=== PATIENT | female | born 1945 | race Caucasian/White ===

== ENCOUNTER 2016-08-13 14:46 | Inpatient (IN) | payer MEDICARE, OTHER ==
--- NOTE | ~2016-08-13 | DS ---
Unit #: [id number] #: [id number] Patient: JORDI LÓPEZ [id number] [address] [address] [id number] I MR#: [id number] NAME: JORDI LÓPEZ. ROOM: 330 Age: 71 Sex: F Admission Date: 08/13/2016 : 1945 Discharge Date: 08/24/2016 Attending Physician: Jose Roberto Marrufo M.D. Primary Care Physician: No Primary Care Physician DISCHARGE SUMMARY PRINCIPAL DISCHARGE DIAGNOSES 1. Iron deficiency anemia. 2. Duodenitis. 3. Diverticulosis. 4. Acute systolic congestive heart failure. 5. 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 6. Type 2 diabetes mellitus. 7. Anemia. 8. Left hip dysplasia. 9. GE reflux disease. 10. Obstructive sleep apnea syndrome. 11. Peripheral arterial disease status post right carotid endarterectomy. 12. Elevated liver functions on admission of unclear etiology. 13. Hyperlipidemia. 14. Hypertension. 15. Status post cholecystectomy. 16. Status post hysterectomy. 17. Status post appendectomy. 18. Paroxysmal atrial fibrillation. 19. Thrombocytopenia. PROCEDURES 1. Transfusion three units packed RBCs, 08/13/16. 2. Transfusion two units of FFP on 08/13/16. 3. Transfusion two units packed RBCs, 08/14/16. 4. EGD with biopsy on 08/17/16. 5. Colonoscopy to the ascending colon on 08/17/16. CONSULTANTS 1. Dr. Nieves from [facility]. 2. Dr. Mendoza from [facility]. REASON FOR HOSPITALIZATION The patient is a 71-year-old white female with a history of multiple CVAs, right hemiparesis, type 2 diabetes mellitus, hypertension, anemia, left hip dysplasia, migraine headaches, GE reflux disease, hyperlipidemia, obstructive sleep apnea syndrome, presented to the emergency room with cough, shortness of air, chest pain. Patient found to be severely anemic with an elevated BNP, atypical bilateral pulmonary infiltrates, EKG changes suggestive of ischemia, elevated liver functions and admitted for same. Rectal exam was heme positive in the emergency room but the patient denied any obvious melena, hematochezia or otherwise. She was on aspirin and warfarin at home. Her protime was therapeutic at 2.1. Hemoglobin on Unit #: [id number] #: [id number] Patient: JORDI LÓPEZ admission was 3.6. BNP 606. Troponin elevated but nondiagnostic. LFTs were markedly elevated with an AST of 685 and an ALT of 857. Chest x-ray showed, again, atypical pulmonary infiltrates and the patient was admitted. HOSPITAL COURSE The patient was typed, crossed matched and transfused to keep her hemoglobin above 8. She received FFP. She received Lasix between the transfusions. CT scan of the abdomen and pelvis was ordered because of the iron deficiency anemia and elevated LFTs. She was placed on IV proton pump inhibitors, low dose sliding scale insulin, Accu-Cheks, SCDs. Cardiology and Surgery were consulted. The patient rapidly improved. Her troponins remained elevated but nondiagnostic. She eventually had a her protime reversed and stabilized and underwent EGD on the showing mild duodenitis. Biopsy for Helicobacter pylori. Colonoscopy to the ascending colon with rare diverticula. The patient had no further evidence of bleeding. Eventually, she was started back on her warfarin, covered with Lovenox because of some paroxysmal atrial fibrillation. A 2D echo was performed, a technically difficult study. Mild global hypokinesis. Ejection fraction of 45 to 50% with mild mitral regurgitation. There was some thought by Cardiology about having a cath but they decided against this, which delayed her discharge. She then was started back on Coumadin overlapped with Lovenox. She could not afford the Lovenox so she had to stay until her protime reached therapeutic levels. In any case, this morning her INR is 2.3. Her BMP is normal except for random blood sugar of 138 and a BUN of 28. She appears to be stable for discharge. Her room air O2 sats are 98%. She is on a Healthy Heart constant carb diet, 1800 mL fluid restriction. She is to have her protime with Dr. Shah on 08/27/16, and an office visit in one week. She is to see Dr. Mendoza, 10/04/16 at 2:45 p.m. CURRENT MEDICATIONS 1. Amiodarone 200 mg b.i.d. until 08/27/16 and then one daily thereafter. 2. Warfarin 2.5 mg p.o. daily. 3. Her Lipitor is on hold because of the elevated liver functions. 4. Norvasc 5 mg p.o. daily. 5. Lopressor 25 mg p.o. b.i.d. 6. Furosemide 40 mg p.o. daily. 7. Zestril 10 mg p.o. daily. 8. Carafate one gram p.o. a.c. and h.s. 9. Aspirin 81 mg daily. 10. Protonix 40 mg daily. 11. Baclofen 10 mg t.i.d. p.r.n. for muscle spasm. 12. Glucotrol 2.5 mg p.o. b.i.d. before meals. Her last CBC shows her hemoglobin at 10.7 and her platelets were slightly low at 122. Biopsy for H. pylori was negative. Thyroid functions checked while the patient was here were within normal limits. Dictated by... Jesse Williamson/cristobal TD: 08/24/2016 08:36 JOB #: [id number] Unit #: [id number] #: [id number] Patient: JORDI LÓPEZ DISCHARGE SUMMARY Page 1 of 1 X Jose Roberto Marrufo MD X DISCHARGE SUMMARY
--- NOTE | ~2016-08-13 | CO ---
Unit #: [id number] #: [id number] Patient: JORDI ALVARADO [id number] [address] [address] [id number] I MR#: [id number] NAME: JORDI ALVARADO ROOM: 330 Age: 71 Sex: F Admission Date: 08/13/2016 : 1945 Attending Physician: Jose Roberto Marrufo M.D. Consultation Date: 08/14/2016 CONSULTATION REPORT HISTORY OF PRESENT ILLNESS Ms. Alvarado is a 71-year-old female, who has a history of diabetes, stroke, hypertension, chronic anemia, reflux, and also with associated obstructive sleep apnea. She was in her usual state of health until about a week ago when she started noticing some shortness of breath and had a single episode of vomiting that she describes as possible coffee-grounds. She denied any hematochezia, hematemesis, hematuria, or hemoptysis. Because of the progression of shortness of breath, fatigue, and the development of some chest pain, she came to the emergency room. In the emergency room, she was found to have a hemoglobin of 3.6. She is chronically anticoagulated, but her INR was therapeutic at 2.1. She was hemodynamically stable. She has been admitted, and transfusions and correction of coags have been initiated in the ICU. The patient is awake, alert, oriented and again on questioning, denies any abdominal pain, weight loss, or clinical evidence of blood loss with hemoptysis, hematuria, hematochezia, or hematemesis. In the ER, she was heme positive, but did not have gross blood per rectum. PAST MEDICAL HISTORY Again, multiple strokes with some residual right lower extremity weakness, diabetes, hyperlipidemia, hypertension, chronic anemia, left hip dysplasia, migraine headaches, reflux, obstructive sleep apnea, hyperlipidemia. She has had an appendectomy, right carotid endarterectomy, partial hysterectomy, and cholecystectomy. She reports a colonoscopy at [facility] several years ago, but does not recall the findings. ALLERGIES No allergies to medication. HOME MEDICATIONS Include Ambien, aspirin, Celexa, glipizide, Lipitor, lisinopril, Nexium, Norvasc, warfarin, baclofen, metoprolol, and gabapentin. SOCIAL HISTORY She lives alone with her daughter and son. She denies tobacco or alcohol. She is retired. FAMILY HISTORY She is unaware of any chronic or inheritable diseases. REVIEW OF SYSTEMS PHYSICAL EXAMINATION Unit #: [id number] #: [id number] Patient: JORDI ALVARADO VITAL SIGNS: Temperature is 98.4, pulse 84 and regular, respiratory rate 17, blood pressure 134/72. GENERAL: She is awake, alert, oriented. No acute distress. HEENT: Unremarkable. CARDIAC: Regular rhythm. LUNGS: Clear. ABDOMEN: Soft, nontender, nondistended. There are no palpable masses. EXTREMITIES: No edema. DIAGNOSTIC STUDIES LABORATORY RESULTS: Sodium 136, potassium 4.3, chloride 104, CO2 of 20, BUN 56, creatinine 1.2, glucose 205, calcium 8.2, albumin 3.1, total bilirubin 1.2, alkaline phosphatase 91, AST and ALT of 685 and 857. Troponin initially 0.29, it is now up to 0.32. INR is 2.1. Hemoglobin 3.6 with an MCV of 68, MCH 29, white count 7900, platelets 154,000. IMAGING STUDIES: Chest x-ray; bilateral infiltrates. CARDIOVASCULAR STUDIES: EKG; normal sinus rhythm. Some nonspecific T-wave abnormality. ASSESSMENT AND PLAN Hemodynamically stable, but severe iron deficiency anemia. The patient denies any gross blood loss, but had one episode of coffee-grounds emesis about a week ago. Once she has been evaluated by Cardiology because of her EKG changes, chest pain, and increased troponins, we will plan on doing an endoscopic evaluation to assess her further. In the meantime, she needs to be adequately transfused and coags corrected. Repeat labs are still pending at this time. Dictated by... Jesse Rodriguez/juan manuel TD: 08/15/2016 00:45 JOB #: [id number] CONSULTATION REPORT Page 1 of 1 X Maikel Nieves MD CONSULTATION REPORT
--- NOTE | ~2016-08-13 | CR72 ---
[facility] A Service of [facility] & [facility] RADIOLOGY TEXT RESULTS PATIENT: JORDI LÓPEZ LOCATION: [facility] 330- : [birth year] UNIT #: [id number] AGE: [address]: Jose Roberto Marrufo MD SEX: F ORDER DR: [id number] [facility] [address] [place], [place] [address] [id number] I MR#: [id number] Acc #: [id number] NAME: JORDI LÓPEZ. : 1945 SEX: F STUDY DATE/TIME: 08/15/2016 7:37 UNIT: [address] ROOM: [facility] STUDY DESCRIPTION: CR Chest Single View Portable Attending Physician: Jose Roberto Marrufo M.D. Ordering Physician: Dameon Mendoza M.D. Primary Care Physician: Primary Care Physician No MEDICAL IMAGING REPORT This report is preliminary unless electronic signature is present EXAM Portable chest INDICATION 71-year-old female with shortness of breath today. COMPARISON 08/13/2016 FINDINGS Worsening bilateral interstitial and alveolar infiltrates. Heart size stable. IMPRESSION Worsening bilateral interstitial and alveolar infiltrates. Dictated by... Juanjose Kingston M.D. THIS IS AN ELECTRONICALLY VERIFIED REPORT Juanjose Kingston M.D. at 08/15/2016 4:27 PM Feliberto TD: 08/15/2016 09:19 JOB #: [id number] MEDICAL IMAGING REPORT Page 1 of 1 COPY
--- NOTE | ~2016-08-13 | EKG ---
PATIENT: JORDI LÓPEZ UNIT #: [id number] Ventricular Rate: 84 BPM Atrial Rate: 84 BPM P-R Interval: 198 ms QRS Duration: 92 ms Q-T Interval: 384 ms QTC Calculation(Bezet): 453 ms P [place]: 60 degrees Calculated R [place]: 34 degrees Calculated T [place]: -123 degrees Diagnosis Line: Normal sinus rhythm Diagnosis Line: ST and T wave abnormality, consider inferolateral Diagnosis Line: ischemia Diagnosis Line: Abnormal ECG Diagnosis Line: When compared with ECG of 13-AUG-2016 13:55, Diagnosis Line: No significant change was found Diagnosis Line: Confirmed by MISHA LEROY MD ([id number]) on 08/14/2016 Diagnosis Line: 10:29:36 PM INTERPRETING MD: MARIAA HYATT
--- NOTE | ~2016-08-13 | CT4 ---
[facility] A Service of [facility] RADIOLOGY TEXT RESULTS PATIENT: JORDI LÓPEZ LOCATION: [address] : [birth year] UNIT #: [id number] AGE: [address]: Jose Roberto Marrufo MD SEX: F ORDER DR: [id number] [facility] [address] [facility]. [place], [place] [address] [id number] I MR#: [id number] Acc #: [id number] NAME: JORDI LÓPEZ. : 1945 SEX: F STUDY DATE/TIME: 08/13/2016 19:04 UNIT: [facility] ROOM: [facility] STUDY DESCRIPTION: CT Abd and Pelv Wo Cont Attending Physician: Jose Roberto Marrufo M.D. Ordering Physician: Jose Roberto Marrufo M.D. Primary Care Physician: Primary Care Physician No MEDICAL IMAGING REPORT This report is preliminary unless electronic signature is present EXAM CT abdomen and pelvis without contrast HISTORY Weakness and blood in stool for [address] examination was performed with one or more of the following radiation dose reduction techniques: automatic exposure control, adjustment of mA and/or kV according to patient size, and iterative reconstruction. FINDINGS CT abdomen and pelvis was performed without contrast. CT ABDOMEN: Calcified mitral annulus. Small bilateral pleural effusions. Mild atelectasis in the posterior lung bases. Small hiatal hernia. Cholecystectomy. The liver, spleen, and adrenal glands are unremarkable. Generalized pancreatic parenchymal atrophy. Mild developmental lobulation or multifocal scarring in the right kidney. 2 mm nonobstructing stone in the lower pole left kidney. No hydronephrosis. No bowel dilatation. Normal caliber abdominal aorta. No ascites. CT PELVIS: Hysterectomy. The urinary bladder is normal. Severe degenerative arthritis in the left hip with probable developmental dysplasia of the left hip. Moderate degenerative arthritis in the right hip. IMPRESSION 1. Moderate degenerative arthritis in the right hip. Paget's disease in the right hemipelvis. 2. No acute findings in the abdomen or pelvis. 3. Small bilateral pleural effusions and mild atelectasis in the [facility] A Service of [facility] & [facility] RADIOLOGY TEXT RESULTS PATIENT: JORDI LÓPEZ LOCATION: [address] : [birth year] UNIT #: [id number] AGE: [address]: Jose Roberto Marrufo MD SEX: F ORDER DR: posterior lower lobes. 4. Small hiatal hernia. 5. Cholecystectomy and hysterectomy. 6. Developmental dysplasia of the left hip. Paget's disease in the right hemipelvis and moderate degenerative arthritis in the right hip. 7. 2 mm nonobstructing stone lower pole left kidney. Dictated by... Ivan Cabrera M.D. THIS IS AN ELECTRONICALLY VERIFIED REPORT Ivan Cabrera M.D. at 08/14/2016 3:56 PM ANN/abel TD: 08/14/2016 08:12 JOB #: [id number] MEDICAL IMAGING REPORT Page 1 of 1 COPY
--- NOTE | ~2016-08-13 | BMI ---
[facility] Nutrition Therapy DATE: 08/14/16 Patient: JORDI LÓPEZ Physician: SHREYAS Address: [address] Room/Bed: [address], Zip: [place] [address] Admit Date: 08/13/16 Date of : [birth year] Height: 5 2 Weight: 240 109 HIGH BMI NOTE: ANTHROPOMETRICS: HT: 62" WT: 109 KG BMI: 43.9 INTERVENTION: 1. NPO RECOMMENDATIONS: 1. ONCE MEDICALLY FEASIBLE, ADVANCE THE PT TO A HEART HEALTHY DIET TOLERATED IN ORDER TO PROMOTE GRADUAL WEIGHT LOSS TOWARDS A HEALTHY BMI RANGE. Respectfully, PADILLA STAPLES RD, LD Food and Nutritional Services [facility] cc: client file
--- NOTE | ~2016-08-13 | EKG ---
PATIENT: JORDI LÓPEZ UNIT #: [id number] Ventricular Rate: 84 BPM Atrial Rate: 241 BPM QRS Duration: 94 ms Q-T Interval: 422 ms QTC Calculation(Bezet): 498 ms Calculated R [place]: 21 degrees Calculated T [place]: -21 degrees Diagnosis Line: Atrial fibrillation with a competing junctional Diagnosis Line: pacemaker Diagnosis Line: Nonspecific ST and T wave abnormality , probably Diagnosis Line: digitalis effect Diagnosis Line: Prolonged QT Diagnosis Line: Abnormal ECG Diagnosis Line: When compared with ECG of 14-AUG-2016 06:54, Diagnosis Line: Atrial fibrillation has replaced Sinus rhythm Diagnosis Line: T wave inversion less evident in Inferior leads Diagnosis Line: T wave inversion no longer evident in Lateral Diagnosis Line: leads Diagnosis Line: Confirmed by MISHA LEROY MD ([id number]) on 08/21/2016 Diagnosis Line: 10:36:02 PM INTERPRETING MD: MARIAA HYATT
--- NOTE | ~2016-08-13 | CR72 ---
[facility] A Service of [facility] & [facility] RADIOLOGY TEXT RESULTS PATIENT: JORDI LÓPEZ LOCATION: [facility] 330- : [birth year] UNIT #: [id number] AGE: [address]: Jose Roberto Marrufo MD SEX: F ORDER DR: [id number] [facility] [address] [facility]. [place], [place] [address] [id number] I MR#: [id number] #: [id number] NAME: JORDI LÓPEZ : 1945 SEX: F STUDY DATE/TIME: 08/17/2016 9:12 UNIT: [address] ROOM: [facility] STUDY DESCRIPTION: CR Chest Single View Portable Attending Physician: Jose Roberto Marrufo M.D. Ordering Physician: Jose Roberto Marrufo M.D. Primary Care Physician: Primary Care Physician No MEDICAL IMAGING REPORT This report is preliminary unless electronic signature is present EXAM Chest portable, 08/17 INDICATION Chest pain and shortness of air for 4 days. History of hypertension. FINDINGS AP portable chest is compared with 08/15/2016. Cardiomegaly is stable. There is some minimal linear atelectasis or scar in the right mid lung. Lungs otherwise are clear. There is no pneumothorax. IMPRESSION Stable cardiomegaly with minimal linear atelectasis or scar in the right mid lung. No other evidence for active disease. Dictated by... Maikel Boland Jr., M.D. THIS IS AN ELECTRONICALLY VERIFIED REPORT Maikel Boland Jr., M.D. at 08/17/2016 3:49 PM JOSHUA/giuliana TD: 08/17/2016 14:09 JOB #: [id number] MEDICAL IMAGING REPORT Page 1 of 1 COPY
--- NOTE | ~2016-08-13 | EKG ---
PATIENT: JORDI LÓPEZ UNIT #: [id number] Ventricular Rate: 87 BPM Atrial Rate: 87 BPM P-R Interval: 182 ms QRS Duration: 96 ms Q-T Interval: 378 ms QTC Calculation(Bezet): 454 ms P [place]: 46 degrees Calculated R [place]: 30 degrees Calculated T [place]: -100 degrees Diagnosis Line: Normal sinus rhythm Diagnosis Line: ST and T wave abnormality, consider inferior Diagnosis Line: ischemia Diagnosis Line: ST and T wave abnormality, consider anterolateral Diagnosis Line: ischemia Diagnosis Line: Abnormal ECG Diagnosis Line: When compared with ECG of 01-JAN-2016 16:59, Diagnosis Line: ST now depressed in Inferior leads Diagnosis Line: ST now depressed in Anterolateral leads Diagnosis Line: T wave inversion now evident in Inferior leads Diagnosis Line: T wave inversion now evident in Anterolateral Diagnosis Line: leads Diagnosis Line: Confirmed by DEEPALI GAUTAM MD ([id number]) on 08/13/2016 Diagnosis Line: 11:06:48 PM INTERPRETING MD: LOTUS HYATT
--- NOTE | ~2016-08-13 | OR ---
Unit #: [id number] #: [id number] Patient: JORDI LÓPEZ [id number] [address] [address] [id number] Perfecto MR#: [id number] NAME: JORDI LÓPEZ. ROOM: [facility] Date of Procedure: 08/17/2016 Admission Date: 08/13/2016 Surgeon: John Love M.D. : 1945 Attending Physician: Jose Roberto Marrufo M.D. OPERATIVE REPORT PREOPERATIVE DIAGNOSIS Anemia. POSTOPERATIVE DIAGNOSES 1. Mild duodenitis. 2. Sigmoid diverticular disease. PROCEDURES PERFORMED 1. Esophagogastroduodenoscopy with biopsy for Helicobacter pylori. 2. Colonoscopy to ascending colon. ANESTHESIA IV sedation. COMPLICATIONS None. INDICATIONS FOR PROCEDURE The patient is a 71-year-old lady with anemia. DESCRIPTION OF PROCEDURE The patient was taken to the operating theater and placed in the left lateral decubitus position. IV sedation was initiated. EGD scope was passed under direct vision into the esophagus. Esophagus was grossly normal. Stomach showed no evidence of ulcer. Duodenum showed mild duodenitis, no ulcer. A biopsy was taken for H. pylori. The scope was retroflexed. I saw no pathology at the GE junction. The patient was repositioned. Digital rectal exam was normal. Colonoscope was then passed under direct vision, navigated through the ascending colon. I was able to visualize the cecum and to exclude any obvious neoplastic lesions, but I was not able to get completely to the cecum. I saw some rare diverticular disease. There was no evidence of recent bleed. There were no neoplastic lesions. She tolerated the procedure well and was sent to the recovery room in good condition. Dictated by... Jesse MedinaO/balajil Unit #: [id number] #: [id number] Patient: JORDI LÓPEZ TD: 08/18/2016 03:32 JOB #: [id number] OPERATIVE REPORT Page 1 of 1 X John Love MD X PROCEDURE OPERATIVE NOTE
--- NOTE | ~2016-08-13 | A ---
[facility] Nutrition Therapy DATE: 08/23/16 Patient: JORDI LÓPEZ Physician: SHREYAS Address: [address] Room/Bed: [address] [place] [address], Zip: [place] [address] Admit Date: 08/13/16 Date of : [birth year] Height: 5 2 Weight: 229 104 NUTRITIONAL ASSESSMENT: REASON: LOS 71 yo female admitted for anemia PMH: Multiple CVAs, T2DM, HTN, anemia, migraine headaches, GERD, OSAS, HLD, L hip dysplasia Anthropometrics: Ht: 5'2" Wt: 104.1 kg (229#) BMI: 42.0 Labs: Gluc 140, BUN 25, GFR 51.2, Alb 2.8, POC 167 Meds: Novolog, Coumadin, Furosemide, Mg, K, Zofran I/O & Bowel function: 1060/10, last BM 08/22 Skin Integrity: Scars (R foot, R neck, abd), bruise (RUE, abd), scab (nose), swelling (knees) Edema: BLE (trace), abd (generalized) Assessment: Chart reviewed, events noted. Pt is currently on a HH + CC diet + 1800 fluid restriction. Pt reports fair appetite and consumes almost all of meals. RD manager international provided written and verbal diabetic diet education. Pt stated receiving diet education in past. RD manager international encouraged consistent meals throughout the day and portion control. Pt verbalized understanding of topic. Pt had no diet questions at this time. Dx: Obese, Class III RT lack of adherence to healthy diet AEB 42.0 BMI, elevated blood glucose levels. Intervention: 1. Diet education 2. HH+CC Monitoring, Evaluation and Goals: 1. Weight; promote gradual weight loss 2. Labs: WNL: gluc Recommendations: 1. Continue HH+CC diet to promote gradual weight loss towards healthy BMI. [facility] Nutrition Therapy DATE: 08/23/16 Patient: JORDI LÓPEZ Physician: SHREYAS Address: [address] Room/Bed: [address] [place] [address], Zip: [place] [address] Admit Date: 08/13/16 Date of : [birth year] Height: 5 2 Weight: 229 104 2. Encourage compliance with diabetic diet. Pt is at a mild nutritional risk. RD will f/u per protocol. Respectfully, Luma Bahena, Surveillance Sensor Operator Mk Correa MS, RD, LD Food and Nutritional Services [facility] cc: client file
--- NOTE | ~2016-08-13 | CO ---
Unit #: [id number] #: [id number] Patient: JORDI LÓPEZ [id number] [facility] [address] [facility]. [place], [place] [address] [id number] I MR#: [id number] NAME: JORDI LÓPEZ. ROOM: 330 Age: 71 Sex: F Admission Date: 08/13/2016 : 1945 Attending Physician: Jose Roberto Marrufo M.D. Primary Care Physician: No Primary Care Physician Consultation Date: 08/14/2016 CONSULTATION REPORT REASON FOR CONSULT Possible congestive heart failure. HISTORY OF PRESENT ILLNESS This is a 71-year-old, white female previously known to our group. The patient was seen by Dr. Argueta in 2010 at [facility] due to recurrent cerebrovascular accident. A previous LUIS in May 2009 revealed a left ventricular ejection fraction 60% to 65% with no thrombus, clot, or vegetation. However, the patient had a patent foramen ovale present. Additional past medical history includes hypertension, hyperlipidemia, diabetes mellitus type 2, GERD, obstructive sleep apnea on CPAP, anemia, obesity, and reformed tobacco abuse. The patient presented to the emergency department with complaints of a cough for one week with some shortness of breath and intermittent chest pain. The pain was located in the midsternal chest and was described as tightness. There was no radiation to the neck, jaw, shoulders, or arms. There were no associated symptoms of nausea, vomiting, or diaphoresis; but she was short of breath. In the emergency department, her temperature was 97.8, pulse 90, respirations 20, blood pressure 111/59, and O2 saturation 90% on room air. Initial labs revealed a hemoglobin of 3.6 with hematocrit of 12.4. Creatinine was 1.2 with a BUN of 56. AST was 685. ALT was 857. Alkaline phos. was normal at 91. Troponin was 0.05 and 0.29. BNP was 606. INR was 2.1 on chronic anticoagulation with Coumadin. Chest x-ray revealed bilateral interstitial opacities, questionably secondary to edema versus infectious etiology. CT of the abdomen and pelvis without contrast revealed moderate degenerative arthritis in the right hip. No acute findings were found in the abdomen or pelvis. There were small bilateral pleural effusions and mild atelectasis in the posterior lower lobes. The patient was admitted for chest pain, severe microcytic anemia, and Hemoccult positive stool while on anticoagulation. Cardiology was consulted for possible congestive heart failure. The patient was transfused with packed red blood cells and further labs were obtained. [facility] were consulted. PAST MEDICAL HISTORY 1. Multiple cerebrovascular accidents on chronic anticoagulation with Coumadin. 2. LUIS, June 16, 2009, revealed an EF of 60% to 65%. Mild LVH. Atrial septum aneurysmal. Patent foramen ovale present. No intraatrial shunt. Mild mitral regurgitation. No pericardial effusion. No clot or thrombus. No vegetation. Aorta not well visualized. 3. Hypertension. Unit #: [id number] #: [id number] Patient: JORDI LÓPEZ 4. Hyperlipidemia. 5. Diabetes mellitus type 2. 6. Obstructive sleep apnea on CPAP. 7. GERD. 8. Peripheral artery disease with history of right carotid endarterectomy in 2009. 9. Anemia. 10. Migraine headaches. 11. Depression. 12. Reformed tobacco abuse. PAST SURGICAL HISTORY 1. Right carotid endarterectomy in May 2009 after a cerebrovascular accident with symptomatic carotid stenosis. 2. Cholecystectomy. 3. Appendectomy. 4. Right ankle surgery. 5. Hysterectomy. 6. Colonoscopy at [facility]. Records pending. HOME MEDICATIONS 1. Ambien 5 mg p.o. at bedtime. 2. Aspirin 81 mg p.o. daily. 3. Celexa, unknown dose. 4. Glucotrol, unknown dose. 5. Lipitor, unknown dose. 6. Lisinopril, unknown dose. 7. Nexium, unknown dose. 8. Norvasc, unknown dose. 9. Coumadin, unknown dose. 10. Baclofen, unknown dose. 11. Metoprolol, unknown dose. 12. Neurontin, unknown dose. Need to clarify medications and doses with the patient's pharmacy. ALLERGIES No known drug allergies. SOCIAL HISTORY The patient is a reformed smoker. There are no reports of alcohol or illicit drug use. FAMILY HISTORY Noncontributory. REVIEW OF SYSTEMS Ten-point review of systems negative, except for details above in HPI. PHYSICAL EXAMINATION VITAL SIGNS: Temperature 98.6, pulse 84, and blood pressure 117/53. CONSTITUTIONAL: This is a 71-year-old, white female in no acute distress. SKIN: Warm and dry. NECK: Supple. HEART: S1 and S2. Regular rate and rhythm. No murmurs, rubs, or gallops. LUNGS: Bilateral breath sounds are decreased air entry in the bases. Respirations even and unlabored. No rales, rhonchi, or wheezes. ABDOMEN: Soft, nontender, and nondistended. Positive bowel sounds Unit #: [id number] #: [id number] Patient: JORDI LÓPEZ auscultated in the four quadrants. No ascites noted. EXTREMITIES: Bilateral lower extremities have no pretibial pitting edema. DP and PT pulses are 2+. Capillary refill less than three seconds. DIAGNOSTIC STUDIES LABORATORY: White blood cell count 6.5, hemoglobin 6.7, hematocrit 20.9, and platelets 116. Sodium 137, potassium 4.1, chloride 105, CO2 22, BUN 52, creatinine 1, glucose 268, AST 448, ALT 707, alkaline phos. 87, total protein 6.3, and albumin 3.2. Troponin 0.05, 0.09, 0.32, and 0.40. BNP 606. Previous TSH in December 2015 normal. Urinalysis positive for 1+ leuks., 1+ blood, and no bacteria. Fecal occult stool reportedly positive. IMAGING: Chest x-ray reveals bilateral interstitial opacities. Possible edema versus infectious inflammatory process. CT of the abdomen and pelvis revealed no acute findings in the abdomen or pelvis. Moderate degenerative arthritis in the right hip. 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 Small bilateral pleural effusions and mild atelectasis in the posterior lower lobes. Small hiatal hernia. Cholecystectomy and hysterectomy. Dysplasia of the left hip. Nonobstructing, 2 mm stone in the lower pole of the left kidney. CARDIOVASCULAR: Electrocardiogram reveals sinus rhythm with a ventricular rate of 84 beats per minute. LVH. ST depression noted in the anterolateral leads. QTC 453 milliseconds. IMPRESSION 1. Severe anemia with GI bleed. 2. Acute diastolic congestive heart failure secondary to CAD. 3. Increased LFTs, questionably secondary to hepatic congestion secondary LV dysfunction. 4. Elevated BUN secondary to GI bleed. 5. Old bilateral frontal cerebrovascular accidents secondary to PFO and cardioembolic events. Grade IV atheroma in the aorta. 6. Peripheral artery disease. Status post right carotid endarterectomy in 2009 due to a 90% stenosis. 7. Hypertension. 8. Hyperlipidemia. 9. Diabetes mellitus. 10. EKG changes secondary to hypertension. 11. Obesity. 12. Chest pain due to CAD versus GERD. PLANS 1. The patient presented to the hospital with complaints of shortness of breath and chest pain. She was admitted for symptomatic anemia and was transfused with packed red blood cells. 2. [facility] were consulted. 3. Cardiology was consulted due to chest pain and possible congestive heart failure. 4. Patient will be diuresed. Will decrease IV fluids and continue transfusion. 5. Will stop Coumadin for the time being. Once anemia is improved, could restart Coumadin, but stop aspirin. 6. After anemia is treated, the patient will need to proceed with ischemic heart disease evaluation. 7. The patient is okay to proceed with EGD and colonoscopy. Unit #: [id number] #: [id number] Patient: JORDI LÓPEZ Dictated by... Sofia Rajput APRN for Jesse Joseph TD: 08/16/2016 11:26 JOB #: [id number] CONSULTATION REPORT Page 1 of 1 X X CONSULTATION REPORT
--- NOTE | ~2016-08-13 | CR72 ---
[facility] A Service of [facility] & [facility] RADIOLOGY TEXT RESULTS PATIENT: JORDI LÓPEZ LOCATION: [address]15 : [birth year] UNIT #: [id number] AGE: [address]: Jose Roberto Marrufo MD SEX: F ORDER DR: [id number] [facility] [address] [facility]. [place], [place] [address] [id number] MR#: [id number] Acc #: [id number] NAME: JORDI LÓPEZ. : 1945 SEX: F STUDY DATE/TIME: 08/13/2016 14:17 UNIT: [facility] ROOM: STUDY DESCRIPTION: CR Chest Single View Portable Attending Physician: Mason Ren M.D. Ordering Physician: Mason Ren M.D. Primary Care Physician: No Primary Care Physician MEDICAL IMAGING REPORT This report is preliminary unless electronic signature is present EXAM Portable chest 08/13/2016 INDICATIONS 71-year-old female with shortness of breath and coughing for 6 days. COMPARISON 10/09/2015 FINDINGS There are bilateral interstitial opacities. Heart size stable. Prominent central pulmonary vasculature. Degenerative changes of the shoulders. IMPRESSION Bilateral interstitial opacities. This may be edema or infectious/inflammatory process. Correlate clinically. Dictated by... Juanjose Kingston M.D. THIS IS AN ELECTRONICALLY VERIFIED REPORT Juanjose Kingston M.D. at 08/14/2016 10:00 AM Pawel TD: 08/13/2016 17:54 JOB #: [id number] MEDICAL IMAGING REPORT Page 1 of 1 COPY
--- NOTE | ~2016-08-13 | HP ---
Unit #: [id number] #: [id number] Patient: JORDI LÓPEZ [id number] [address] [place], [place] [address] [id number] I MR#: [id number] NAME: JORDI LÓPEZ. ROOM: 35210 Age: 71 Sex: F Admission Date: 08/13/2016 : 1945 Attending Physician: Jose Roberto Marrufo M.D. Primary Care Physician: Primary Care Physician No HISTORY AND PHYSICAL HISTORY OF PRESENT ILLNESS The patient is a 71-year-old white female with a history of multiple CVAs, largest one being on the left anterior communicating artery with right lower extremity weakness as a residual, type 2 diabetes mellitus, hypertension, anemia, left hip dysplasia, migraine headaches, GE reflux disease, obstructive sleep apnea syndrome, hyperlipidemia, presents to the emergency room with one week of cough, shortness of air, chest pain. In the ER, she was found to be severely anemic and an elevated BNP, atypical bilateral pulmonary infiltrates, elevated LFTs, EKG changes suggestive of ischemia but normal troponins and she is admitted for further evaluation. It should be noted on rectal exam here in the emergency room she was heme-positive but she has had no melena, nausea, vomiting or abdominal pain. She is on aspirin and warfarin at home. Her pro time was therapeutic at 2.1. Not exactly sure why she is on this other than to prevent further strokes. She is unsure of her last colonoscopy but believes it was two years ago at [facility]. She was last here 01/03/2016 at which time she had a LUIS showing severe atherosclerosis of the aorta with grade 4 atheroma, I suspect that is why she is on the Coumadin. Her last hemoglobin here in the hospital was 10.1 in December 2015. Going back it has ranged from 9.3 to 12 over the last 6 or 7 years since she was diagnosed originally with anemia of chronic disease which is obviously not the case at this point. PAST MEDICAL HISTORY 1. Multiple CVAs. 2. Anticoagulated. 3. Hyperlipidemia. 4. Hypertension. 5. Type 2 diabetes mellitus. 6. Obstructive sleep apnea syndrome. 7. GE reflux disease. 8. Left hip dysplasia. PAST SURGICAL HISTORY 1. Appendectomy. 2. Right carotid endarterectomy. 3. Partial hysterectomy. 4. Cholecystectomy. HOME MEDICATIONS 1. Ambien 5 mg p.o. h.s. 2. Aspirin, dose unknown, daily. 3. Celexa, dose unknown, daily. 4. Glipizide two daily dose unknown. Unit #: [id number] #: [id number] Patient: JORDI LÓPEZ 5. Lipitor one daily. 6. Lisinopril one daily. 7. Nexium one daily. 8. Norvasc one daily. 9. Warfarin, dose unknown, daily. 10. Baclofen three times a day. 11. Metoprolol tartrate one-half tab b.i.d. 12. Gabapentin one to two pills h.s. ALLERGIES No known medical allergies. SOCIAL HISTORY , nonsmoker, nondrinker. No street drug use. FAMILY HISTORY Noncontributory. PHYSICAL EXAMINATION VITAL SIGNS: Afebrile, pulse 87, respirations 20, blood pressure 111/44, room air O2 saturation 90%. GENERAL: She is awake, alert, oriented x3. No acute distress. HEENT: Unremarkable except for pale mucous membranes. NECK: Supple without JVD, bruits, adenopathy, or thyromegaly. LUNGS: Diffusely decreased breath sounds but clear to auscultation. HEART: Regular rate and rhythm without murmurs, rubs, or gallops. ABDOMEN: Soft, nondistended, nontender with positive bowel sounds and no hepatosplenomegaly. EXTREMITIES: No clubbing, cyanosis, or edema. GENITOURINARY: Deferred. RECTAL: Deferred. NEUROLOGIC: Grossly intact although the patient is lying on a stretcher and was not ambulated. DIAGNOSTIC STUDIES LABORATORY: PT/INR 2.1, PTT 26.5. White count 7.9, platelets 154,000, hemoglobin 3.6 with an MCV of 68 and MCH of 19.8, RDW 20.1. On the smear, there is slight polychromasia, hypochromia, anisocytosis, microcytosis, schistocytes, ovalocytes. BNP 606. CMP is normal except for a CO2 of 20, random blood sugar of 205, BUN 56, GFR of 46, calcium 8.2, albumin 3.0, AST 685, ALT 857, direct bilirubin is 0.3, indirect bilirubin is normal at 0.9. First troponin was 0.07, second one was less than 0.05. IMAGING: Chest x-ray bilateral interstitial opacities which could be edema, infectious or inflammatory. CARDIOVASCULAR: EKG shows a sinus rhythm at 87 beats per minute with fairly marked but asymmetrical ST depression and T-wave inversion in the inferior and anterolateral leads, pretty much throughout all the leads except for maybe the high lateral leads including aVL. In any case, these are new compared to her old EKG from December 2015. IMPRESSION 1. Chest pain. 2. EKG changes. 3. Normal troponin. 4. Severe microcytic anemia. 5. Heme-positive stool. Unit #: [id number] #: [id number] Patient: JORDI LÓPEZ 6. Anticoagulated. 7. Peripheral arterial disease, status post right carotid endarterectomy. 8. Multiple old cerebrovascular accidents. 9. Elevated BNP. 10. Atypical pulmonary infiltrates. 11. Hypertension. 12. Type 2 diabetes mellitus. 13. Hyperlipidemia. 14. Markedly elevated liver function tests. 15. Obstructive sleep apnea syndrome. 16. Gastroesophageal reflux disease. 17. Status post appendectomy. 18. Status post cholecystectomy. 19. Status post partial hysterectomy. PLAN 1. Type, cross-match, and transfuse 3 units of packed red blood cells. 2. Give Lasix between the transfusions. 3. Give 2 units of FFP to reverse her anticoagulation. 4. Consult [facility] for endoscopy. 5. CT scan of the abdomen and pelvis without dye for further evaluation of her elevated LFTs. 6. IV proton pump inhibitors. 7. Accu-Cheks a.c. and h.s. 8. Low-dose sliding scale insulin. 9. Repeat cardiac enzymes. 10. Consult Cardiology. 11. EKG in the morning. 12. Check procalcitonin. 13. Check iron, B12, and folate studies. 14. 2D echo with Doppler. 15. Give Lasix between each unit of blood. 16. Further evaluation pending results of the above. Dictated by Jose Roberto Marrufo M.D. EVERARDO/yaneth TD: 08/13/2016 19:04 JOB #: [id number] HISTORY AND PHYSICAL Page 1 of 1 X Jose Roberto Marrufo MD X HISTORY AND PHYSICAL
[~2016-08-13 14:46] MED LIST: ACETAMINOPHEN PO; AGGRENOX1 CAP PO; ALBUTEROL1.25 MG/3 INH; AMBIEN; ASPIRIN EC81 M1 PO; ASPIRIN PO; ASPIRIN81 M1 PO; ATORVASTATIN CA80 MG PO; BUSPIRONE HCL15 MG PO; CELEXA PO; CEPHALEXIN250 M1 PO; COLACE PO; FAMOTIDINE PO; HCTZ PO; HUMULIN R100 U/ML; HYDROCODON-ACE1 EAC9 PO; LEVEMIR SUBQ; LISINOPRIL PO; METFORMIN HCL500 M1 PO; MOBIC PO; NEXIUM 24HR20 MG PO; NORVASC PO; NORVASC10 MG PO; NOVOLOG100 U/ML SUBQ; PLAVIX PO; PRILOSEC PO; PRINIVIL40 MG PO; STARLIX PO; TRAZODONE HCL100 MG PO; TYLENOL #3 PO; ZOCOR PO
[2016-08-13 16:01] LABS: INR 2.1; PARTIAL THROMBOPLASTIN TIME 26.5 SECONDS (23.5-31.3)
[2016-08-13 16:02] LABS: BASOPHIL% 0.5 % (0-2.5); EOSINOPHIL% 0.1 % (0.0-7.0); HEMATOCRIT 12.4 % (35.0-45.0); LYMPHOCYTE# 0.8 X10e3 (1.0-3.5); LYMPHOCYTE% 10.7 % (17.0-45.0); MEAN CELL VOLUME 68.2 FL (83-96); MEAN CORPUSCULAR HEMOGLOBIN 19.8 PG (28-34); MEAN CORPUSCULAR HGB CONC 29.1 g/dL (30-36); MONOCYTE# 0.6 X10e3 (0-1.0); MONOCYTE% 7.3 % (3.0-12.0); NEUTROPHIL# 6.4 X10e3 (1.5-7.1); NEUTROPHIL% 81.4 % (40-75); PLATELET COUNT 154 X10e3 (140-420); RED BLOOD COUNT 1.82 X10e (3.90-5.30); RED CELL DISTRIBUTION WIDTH 20.1 % (11.0-15.5); WHITE BLOOD COUNT 7.9 X10e3 (4.0-10.5)
[2016-08-13 16:04] LABS: HEMOGLOBIN 3.6 gm/dL (12.0-16.0)
[2016-08-13 16:05] LABS: DIFF IND YES
[2016-08-13 16:07] LABS: PROTHROMBIN TIME (PATIENT) 22.7 SECONDS (9.6-11.5)
[2016-08-13 16:26] LABS: PLATELET ESTIMATE NORMAL (NORMAL)
[2016-08-13 16:27] LABS: ANISOCYTOSIS MOD; HYPOCHROMIA MOD; MICROCYTOSIS MOD
[2016-08-13 16:28] LABS: POLYCHROMASIA SL; SCHISTOCYTES PRESENT
[2016-08-13 16:29] LABS: OVALOCYTES PRESENT
[2016-08-13 16:42] LABS: ALBUMIN SERUM 3.1 g/dL (3.5-5.0); BILIRUBIN, DIRECT 0.3 mg/dL (0.0-0.2); BILIRUBIN,INDIRECT 0.9 mg/dL (0.0-0.9); BILIRUBIN,TOTAL 1.2 mg/dL (0.2-2.0); BUN/CREATININE RATIO 46.66; CALCIUM SERUM 8.2 mg/dL (8.4-10.2); CREATININE SERUM 1.2 mg/dL (0.6-1.4); GLOM FILT RATE Estimated 46.1 mL/min (>60); POTASSIUM 4.3 mmol/L (3.5-5.1); PROTEIN TOTAL SERUM 6.2 g/dL (6.0-8.3)
[2016-08-13 17:01] LABS: POC - CKMB 1.2 ng/mL (0.0-7.9); POC - TROPONIN 0.07 ng/mL (<=0.05)
[2016-08-13 17:30] LABS: POC - CKMB <1.0 ng/mL (0.0-7.9); POC - TROPONIN <0.05 ng/mL (<=0.05)
[2016-08-13] MEDS ORDERED: AMBIEN PO (18:32)
[2016-08-13] MEDS ORDERED: ASPIRIN81 MG PO (18:33)
[2016-08-13] MEDS ORDERED: GLUCOTROL PO (18:34)
[2016-08-13] MEDS ORDERED: CELEXA PO (18:34)
[2016-08-13] MEDS ORDERED: LIPITOR PO (18:35)
[2016-08-13] MEDS ORDERED: LISINOPRIL PO (18:35)
[2016-08-13] MEDS ORDERED: NEXIUM PO (18:36)
[2016-08-13] MEDS ORDERED: NORVASC PO (18:36)
[2016-08-13] MEDS ORDERED: COUMADIN PO (18:37)
[2016-08-13] MEDS ORDERED: LOPRESSOR PO (18:38)
[2016-08-13] MEDS ORDERED: BACLOFEN5 GM PO (18:38)
[2016-08-13] MEDS ORDERED: NEURONTIN PO (18:39)
[2016-08-13 19:26] LABS: IRON SERUM 10 ug/dL (28-170); TOTAL IRON BINDING CAPACITY 422 ug/dL (269-535); TRANSFERRIN 301 mg/dL (192-382); TRANSFERRIN SATURATION 2 % (20-50)
[2016-08-13 19:34] LABS: FOLATE (FOLIC ACID) 20.3 ng/mL (>5.8)
[2016-08-13 20:04] LABS: CK TOTAL 49 IU/L (26-140)
[2016-08-14 02:31] LABS: CK TOTAL 58 IU/L (26-140)
[2016-08-14 06:36] LABS: BASOPHIL% 0.1 % (0-2.5); HEMATOCRIT 20.9 % (35.0-45.0); LYMPHOCYTE# 0.4 X10e3 (1.0-3.5); LYMPHOCYTE% 5.7 % (17.0-45.0); MEAN PLATELET VOLUME 11.6 FL (6.5-11.5); MONOCYTE# 0.2 X10e3 (0-1.0); MONOCYTE% 2.7 % (3.0-12.0); NEUTROPHIL# 5.9 X10e3 (1.5-7.1); NEUTROPHIL% 91.5 % (40-75); PLATELET COUNT 116 X10e3 (140-420); RED BLOOD COUNT 2.79 X10e (3.90-5.30); RED CELL DISTRIBUTION WIDTH 21.9 % (11.0-15.5); WHITE BLOOD COUNT 6.5 X10e3 (4.0-10.5)
[2016-08-14 06:40] LABS: DIFF IND NO; HEMOGLOBIN 6.7 gm/dL (12.0-16.0); MEAN CELL VOLUME 74.9 FL (83-96)
[2016-08-14 07:25] LABS: ALBUMIN SERUM 3.2 g/dL (3.5-5.0); BILIRUBIN,TOTAL 1.3 mg/dL (0.2-2.0); CALCIUM SERUM 8.2 mg/dL (8.4-10.2); GLOM FILT RATE Estimated 57.5 mL/min (>60); POTASSIUM 4.1 mmol/L (3.5-5.1); PROTEIN TOTAL SERUM 6.3 g/dL (6.0-8.3)
[2016-08-14 07:56] LABS: %MB 5.3 % (0.0-4.0); MB 3.9 ng/ml
[2016-08-14 08:56] LABS: URINE APPEARANCE CLEAR; URINE BILIRUBIN NEG (NEG); URINE BLOOD 1+ (NEG); URINE COLOR YELLOW; URINE GLUCOSE NEG (NEG); URINE KETONE NEG (NEG); URINE LEUKOCYTE ESTERASE 1+ (NEG); URINE NITRATE NEG (NEG); URINE PROTEIN NEG (NEG); URINE SPECIFIC GRAVITY 1.006 (1.003-1.035); URINE UROBILINOGEN 0.2 MG/DL (NEG)
[2016-08-14 08:59] LABS: U HYALINE CASTS AUWI 0-2 /[LPF]; URINE BACTERIA AUWI NEG (NEGATIVE); URINE SQUAMOUS EPITHELIAL CELL NONE SEEN /[HPF]
[2016-08-14 09:12] LABS: CULTURE INDICATED? NO
[2016-08-14 15:41] LABS: HEMATOCRIT 29.6 % (35.0-45.0)
[2016-08-14 16:06] LABS: HEMOGLOBIN 9.4 gm/dL (12.0-16.0)
[2016-08-15 06:48] LABS: INR 1.7
[2016-08-15 07:25] LABS: ALBUMIN SERUM 2.9 g/dL (3.5-5.0); BILIRUBIN, DIRECT 0.4 mg/dL (0.0-0.2); BILIRUBIN,INDIRECT 0.9 mg/dL (0.0-0.9); BILIRUBIN,TOTAL 1.3 mg/dL (0.2-2.0); GLOM FILT RATE Estimated 57.5 mL/min (>60); POTASSIUM 3.8 mmol/L (3.5-5.1); PROTEIN TOTAL SERUM 5.8 g/dL (6.0-8.3)
[2016-08-16 07:15] LABS: HEMATOCRIT 27.8 % (35.0-45.0); HEMOGLOBIN 8.9 gm/dL (12.0-16.0); MEAN CELL VOLUME 77.8 FL (83-96); MEAN CORPUSCULAR HGB CONC 32.1 g/dL (30-36); RED BLOOD COUNT 3.58 X10e (3.90-5.30); WHITE BLOOD COUNT 7.8 X10e3 (4.0-10.5)
[2016-08-16 07:23] LABS: INR 1.9; PROTHROMBIN TIME (PATIENT) 20.4 SECONDS (9.6-11.5)
[2016-08-16 07:45] LABS: ALBUMIN SERUM 2.9 g/dL (3.5-5.0); BILIRUBIN, DIRECT 0.4 mg/dL (0.0-0.2); BILIRUBIN,TOTAL 1.6 mg/dL (0.2-2.0); BUN/CREATININE RATIO 41.25; CREATININE SERUM 0.8 mg/dL (0.6-1.4); GLOM FILT RATE Estimated 75.3 mL/min (>60); POTASSIUM 3.3 mmol/L (3.5-5.1); PROTEIN TOTAL SERUM 5.7 g/dL (6.0-8.3)
[2016-08-17 06:57] LABS: HEMATOCRIT 29.2 % (35.0-45.0); HEMOGLOBIN 9.3 gm/dL (12.0-16.0); MEAN CELL VOLUME 77.6 FL (83-96); MEAN CORPUSCULAR HEMOGLOBIN 24.9 PG (28-34); MEAN PLATELET VOLUME 11.6 FL (6.5-11.5); RED BLOOD COUNT 3.76 X10e (3.90-5.30); RED CELL DISTRIBUTION WIDTH 21.8 % (11.0-15.5); WHITE BLOOD COUNT 7.1 X10e3 (4.0-10.5)
[2016-08-17 07:16] LABS: INR 1.5; PROTHROMBIN TIME (PATIENT) 15.6 SECONDS (9.6-11.5)
[2016-08-17 07:32] LABS: ALBUMIN SERUM 2.7 g/dL (3.5-5.0); BILIRUBIN, DIRECT 0.3 mg/dL (0.0-0.2); BILIRUBIN,TOTAL 1.4 mg/dL (0.2-2.0); BUN/CREATININE RATIO 28.33; CALCIUM SERUM 7.7 mg/dL (8.4-10.2); CREATININE SERUM 0.6 mg/dL (0.6-1.4); MAGNESIUM 2.1 mg/dL (1.6-3.0); POTASSIUM 3.2 mmol/L (3.5-5.1)
[2016-08-18 09:31] LABS: HEMATOCRIT 29.9 % (35.0-45.0); HEMOGLOBIN 9.6 gm/dL (12.0-16.0); MEAN CELL VOLUME 77.5 FL (83-96); MEAN CORPUSCULAR HEMOGLOBIN 24.8 PG (28-34); MEAN PLATELET VOLUME 11.3 FL (6.5-11.5); RED BLOOD COUNT 3.86 X10e (3.90-5.30); RED CELL DISTRIBUTION WIDTH 21.5 % (11.0-15.5); WHITE BLOOD COUNT 6.4 X10e3 (4.0-10.5)
[2016-08-18 09:45] LABS: INR 1.1; PROTHROMBIN TIME (PATIENT) 12.1 SECONDS (9.6-11.5)
[2016-08-18 09:58] LABS: ALBUMIN SERUM 2.8 g/dL (3.5-5.0); BILIRUBIN,TOTAL 1.2 mg/dL (0.2-2.0); BUN/CREATININE RATIO 14.28; CREATININE SERUM 0.7 mg/dL (0.6-1.4); GLOM FILT RATE Estimated 88.4 mL/min (>60); MAGNESIUM 1.8 mg/dL (1.6-3.0); POTASSIUM 3.5 mmol/L (3.5-5.1); PROTEIN TOTAL SERUM 5.4 g/dL (6.0-8.3)
[2016-08-18 10:05] LABS: FREE T3 2.9 pg/mL (2.5-3.9)
[2016-08-18 10:08] LABS: FREE THYROXIN (T4) 1.47 ng/dL (0.58-1.64)
[2016-08-19 06:48] LABS: BASOPHIL# 0.1 X10e3 (0-0.3); BASOPHIL% 1.1 % (0-2.5); DIFF IND NO; EOSINOPHIL# 0.3 X10e3 (0-0.7); EOSINOPHIL% 4.1 % (0.0-7.0); HEMATOCRIT 31.1 % (35.0-45.0); HEMOGLOBIN 9.9 gm/dL (12.0-16.0); LYMPHOCYTE# 2.2 X10e3 (1.0-3.5); LYMPHOCYTE% 29.7 % (17.0-45.0); MEAN CORPUSCULAR HEMOGLOBIN 25.2 PG (28-34); MEAN CORPUSCULAR HGB CONC 31.9 g/dL (30-36); MEAN PLATELET VOLUME 10.9 FL (6.5-11.5); MONOCYTE# 0.8 X10e3 (0-1.0); MONOCYTE% 10.6 % (3.0-12.0); NEUTROPHIL# 4.1 X10e3 (1.5-7.1); NEUTROPHIL% 54.5 % (40-75); PLATELET COUNT 117 X10e3 (140-420); RED BLOOD COUNT 3.94 X10e (3.90-5.30); RED CELL DISTRIBUTION WIDTH 22.4 % (11.0-15.5); WHITE BLOOD COUNT 7.6 X10e3 (4.0-10.5)
[2016-08-19 07:52] LABS: CALCIUM SERUM 8.2 mg/dL (8.4-10.2); CREATININE SERUM 0.8 mg/dL (0.6-1.4); GLOM FILT RATE Estimated 75.3 mL/min (>60); MAGNESIUM 1.9 mg/dL (1.6-3.0); POTASSIUM 3.7 mmol/L (3.5-5.1)
[2016-08-20 06:19] LABS: BASOPHIL# 0.1 X10e3 (0-0.3); BASOPHIL% 0.7 % (0-2.5); EOSINOPHIL# 0.3 X10e3 (0-0.7); HEMATOCRIT 33.2 % (35.0-45.0); HEMOGLOBIN 10.5 gm/dL (12.0-16.0); LYMPHOCYTE# 2.3 X10e3 (1.0-3.5); LYMPHOCYTE% 26.6 % (17.0-45.0); MEAN CELL VOLUME 79.6 FL (83-96); MEAN CORPUSCULAR HEMOGLOBIN 25.1 PG (28-34); MEAN CORPUSCULAR HGB CONC 31.6 g/dL (30-36); MEAN PLATELET VOLUME 11.2 FL (6.5-11.5); MONOCYTE% 11.4 % (3.0-12.0); NEUTROPHIL% 58.3 % (40-75); RED BLOOD COUNT 4.17 X10e (3.90-5.30); RED CELL DISTRIBUTION WIDTH 23.1 % (11.0-15.5); WHITE BLOOD COUNT 8.5 X10e3 (4.0-10.5)
[2016-08-20 06:25] LABS: DIFF IND YES
[2016-08-20 06:41] LABS: CALCIUM SERUM 8.4 mg/dL (8.4-10.2); GLOM FILT RATE Estimated 57.5 mL/min (>60)
[2016-08-20 10:20] LABS: ANISOCYTOSIS SL; BURR CELLS PRESENT; PLATELET ESTIMATE DECREASED (NORMAL); POIKILOCYTOSIS SL; STOMATOCYTE PRESENT
[2016-08-20 10:21] LABS: PLATELET COUNT 122 X10e3 (140-420)
[2016-08-21 08:17] LABS: PROTHROMBIN TIME (PATIENT) 10.8 SECONDS (9.6-11.5)
[2016-08-21] MEDS ORDERED: CELEXA20 MG PO (18:29)
[2016-08-21] MEDS ORDERED: LIPITOR80 MG PO (18:30)
[2016-08-21] MEDS ORDERED: GLUCOTROL PO (18:30)
[2016-08-21] MEDS ORDERED: ZESTRIL40 MG PO (18:31)
[2016-08-21] MEDS ORDERED: NORVASC10 MG PO (18:31)
[2016-08-21] MEDS ORDERED: OMEPRAZOLE20 M2 PO (18:31)
[2016-08-21] MEDS ORDERED: COUMADIN2.5 MG PO (18:32)
[2016-08-21] MEDS ORDERED: BACLOFEN10 MG PO (18:32)
[2016-08-21] MEDS ORDERED: LOPRESSOR PO (18:33)
[2016-08-22 08:21] LABS: INR 1.2; PROTHROMBIN TIME (PATIENT) 12.8 SECONDS (9.6-11.5)
[2016-08-22 08:24] LABS: HEMATOCRIT 32.4 % (35.0-45.0); HEMOGLOBIN 10.3 gm/dL (12.0-16.0); MEAN CELL VOLUME 81.8 FL (83-96); MEAN CORPUSCULAR HEMOGLOBIN 25.9 PG (28-34); MEAN CORPUSCULAR HGB CONC 31.6 g/dL (30-36); RED BLOOD COUNT 3.97 X10e (3.90-5.30); RED CELL DISTRIBUTION WIDTH 24.3 % (11.0-15.5); WHITE BLOOD COUNT 7.8 X10e3 (4.0-10.5)
[2016-08-22 08:41] LABS: BUN/CREATININE RATIO 23.75; CREATININE SERUM 0.8 mg/dL (0.6-1.4); GLOM FILT RATE Estimated 75.3 mL/min (>60); MAGNESIUM 1.8 mg/dL (1.6-3.0)
[2016-08-23 04:25] LABS: HEMATOCRIT 32.8 % (35.0-45.0); HEMOGLOBIN 10.7 gm/dL (12.0-16.0); MEAN CELL VOLUME 81.4 FL (83-96); MEAN CORPUSCULAR HEMOGLOBIN 26.5 PG (28-34); MEAN CORPUSCULAR HGB CONC 32.5 g/dL (30-36); MEAN PLATELET VOLUME 11.3 FL (6.5-11.5); RED BLOOD COUNT 4.03 X10e (3.90-5.30); RED CELL DISTRIBUTION WIDTH 24.8 % (11.0-15.5); WHITE BLOOD COUNT 9.2 X10e3 (4.0-10.5)
[2016-08-23 04:40] LABS: INR 1.6; PROTHROMBIN TIME (PATIENT) 17.4 SECONDS (9.6-11.5)
[2016-08-23 04:53] LABS: BUN/CREATININE RATIO 22.72; CALCIUM SERUM 8.8 mg/dL (8.4-10.2); CREATININE SERUM 1.1 mg/dL (0.6-1.4); GLOM FILT RATE Estimated 51.2 mL/min (>60); POTASSIUM 4.3 mmol/L (3.5-5.1)
[2016-08-24 05:29] LABS: INR 2.3; PROTHROMBIN TIME (PATIENT) 24.7 SECONDS (9.6-11.5)
[2016-08-24 05:54] LABS: BUN/CREATININE RATIO 31.11; CALCIUM SERUM 8.5 mg/dL (8.4-10.2); CREATININE SERUM 0.9 mg/dL (0.6-1.4); GLOM FILT RATE Estimated 65.3 mL/min (>60); MAGNESIUM 1.9 mg/dL (1.6-3.0)
== END 2016-08-24 18:36 | DRG 811 ==
LOC: CED 14:46 → CEDOF 20:10 → CICCU3 20:53 → C3A PCU 08-14 20:12
PROVIDERS: Emergency Medicine; Internal Medicine; Internal Medicine Cardiovascular Disease; Specialist; Surgery
PROC: 30233L1 Transfusion of Nonautologous Fresh Plasma into Peripheral Vein, Percutaneous Approach (ICD-10-PCS; principal; 2016-08-13)
PROC: 30233N1 Transfusion of Nonautologous Red Blood Cells into Peripheral Vein, Percutaneous Approach (ICD-10-PCS; 2016-08-13)
PROC: B24BZZZ Ultrasonography of Heart with Aorta (ICD-10-PCS; 2016-08-16)
PROC: 0DJD8ZZ Inspection of Lower Intestinal Tract, Via Natural or Artificial Opening Endoscopic (ICD-10-PCS; 2016-08-17)
PROC: 0DB68ZX Excision of Stomach, Via Natural or Artificial Opening Endoscopic, Diagnostic (ICD-10-PCS; 2016-08-17 11:30)
DX: D50.9 Iron deficiency anemia, unspecified (principal); I50.21 Acute systolic (congestive) heart failure; I69.351 Hemiplegia and hemiparesis following cerebral infarction affecting right dominant side; D69.6 Thrombocytopenia, unspecified; Z68.41 Body mass index [BMI] 40.0-44.9, adult; I11.0 Hypertensive heart disease with heart failure; K29.80 Duodenitis without bleeding; K57.30 Diverticulosis of large intestine without perforation or abscess without bleeding; I25.10 Atherosclerotic heart disease of native coronary artery without angina pectoris; E11.9 Type 2 diabetes mellitus without complications; Z79.84 Long term (current) use of oral hypoglycemic drugs; D64.9 Anemia, unspecified; Q65.89 Other specified congenital deformities of hip; K21.9 Gastro-esophageal reflux disease without esophagitis; G47.33 Obstructive sleep apnea (adult) (pediatric); R94.5 Abnormal results of liver function studies; E78.5 Hyperlipidemia, unspecified; I48.0 Paroxysmal atrial fibrillation; Z79.01 Long term (current) use of anticoagulants; E66.9 Obesity, unspecified; Z87.891 Personal history of nicotine dependence; F32.9 Major depressive disorder, single episode, unspecified; E87.6 Hypokalemia
CPT/HCPCS: 36415; 71010; 74176; 80048; 80053; 80061; 80076; 81003; 82248; 82308; 82550; 82553; 82607; 82728; 82746; 82947; 83540; 83550; 83735; 83880; 84439; 84443; 84481; 84484; 85014; 85018; 85025; 85027; 85610; 85730; 86850; 86900; 86901; 86923; 87077; 93005; 93306; 94760; 97110; 97162; 97166; 99285; C9113; G8978-GP; G8979-GP; G8980-GP; G8987-GO; G8988-GO; G8989-GO; J0456; J0696; J1650; J1815; J1940; J2405; J2916; J2930; J3430; J3475; J3480; P9016; P9059

== ENCOUNTER 2016-10-26 13:54 | Observation (INO) | payer MEDICARE, OTHER ==
--- NOTE | ~2016-10-26 | DS ---
Unit #: [id number] #: [id number] Patient: JORDI LÓPEZ [id number] [address] [place], [place] [address] [id number] I MR#: [id number] NAME: JORDI LÓPEZ. ROOM: 558 Age: 71 Sex: F Admission Date: 10/26/2016 : 1945 Discharge Date: 10/27/2016 Attending Physician: Tasia Wilkerson M.D. Primary Care Physician: No Primary Care Physician DISCHARGE SUMMARY TWENTY-THREE HOUR OBSERVATION NOTE HOSPITAL SUMMARY The patient is a 71-year-old white female with history of iron deficiency anemia, chronic systolic CHF, multiple CVAs, right hemiparesis, type 2 diabetes mellitus, obstructive sleep apnea syndrome, peripheral arterial disease, hyperlipidemia, hypertension, paroxysmal atrial fibrillation - on warfarin. Recently released from rehab center. Apparently was supposed to have home health services but had not seen a physician or had any home health services in over a month. They finally arrived yesterday, at which time they checked her ProTime and found it to be over 8. They called her primary care physician who referred her to the emergency room. There, a PT-INR was 8.2. Hemoglobin was 11.9. She had no bleeding but had a fairly large bruise on her left elbow and the posterior right hand, which was a very small bruise. She was given vitamin K in the emergency room, admitted, and ordered another PT and INR last p.m., which was not performed. PT-INR this morning is 3.1. She has had no bleeding. Her vital signs are stable. She has no complaints, will be discharged home. She will be on a healthy heart, constant carb diet. [facility] is to draw a ProTime on 10/29/16. She is to follow up with Dr. Shah in 1 week. MEDICATIONS 1. All her home meds will be the same except her warfarin, which was 3 mg daily, will be started back at 1.5 mg (1/2 of a 3 mg tablet) daily until it is repeated. 2. Her other home meds: Zofran 4 mg p.o. q.6 p.r.n. nausea; 3. Amiodarone 200 mg p.o. daily; 4. Ambien 10 mg p.o. q.h.s.; 5. Norvasc 5 mg p.o. daily; 6. Metoprolol tartrate 25 mg p.o. b.i.d.; 7. Furosemide 40 mg p.o. daily; 8. Zestril 10 mg p.o. daily; 9. NovoLog FlexPen on a sliding scale a.c. and h.s.; 10. Iron 325 mg daily; 11. Aspirin 81 mg daily; 12. Shannon 7.5/325 mg 1 p.o. q.6 hours p.r.n. pain; 13. Nexium 22.3 mg p.o. daily. 14. Baclofen 10 mg t.i.d. 15. Glucotrol XL 2.5 mg b.i.d. NOTE: Again, she is to have [facility] draw a ProTime on Saturday, 10/29, and Unit #: [id number] #: [id number] Patient: JORDI LÓPEZ follow up with Dr. Shah in 1 week. Dictated by... Jesse Williamson/julio césar TD: 10/29/2016 12:00 JOB #: [id number] DISCHARGE SUMMARY Page 1 of 1 X Jose Roberto Marrufo MD X DISCHARGE SUMMARY
[~2016-10-26 13:54] MED LIST changes: +AMBIEN PO; +ASPIRIN81 MG PO; +BACLOFEN10 MG PO; +BACLOFEN5 GM PO; +CELEXA20 MG PO; +COUMADIN PO; +COUMADIN2.5 MG PO; +GLUCOTROL PO; +LIPITOR PO; +LIPITOR80 MG PO; +LOPRESSOR PO; +NEURONTIN PO; +NEXIUM PO; +OMEPRAZOLE20 M2 PO; +ZESTRIL40 MG PO
[2016-10-26 15:19] LABS: BASOPHIL# 0.1 X10e3 (0-0.3); BASOPHIL% 0.9 % (0-2.5); EOSINOPHIL# 0.1 X10e3 (0-0.7); HEMATOCRIT 36.3 % (35.0-45.0); HEMOGLOBIN 11.9 gm/dL (12.0-16.0); LYMPHOCYTE# 1.4 X10e3 (1.0-3.5); LYMPHOCYTE% 18.6 % (17.0-45.0); MEAN CELL VOLUME 87.1 FL (83-96); MEAN CORPUSCULAR HEMOGLOBIN 28.6 PG (28-34); MEAN CORPUSCULAR HGB CONC 32.8 g/dL (30-36); MEAN PLATELET VOLUME 11.2 FL (6.5-11.5); MONOCYTE# 0.7 X10e3 (0-1.0); MONOCYTE% 9.7 % (3.0-12.0); NEUTROPHIL# 5.3 X10e3 (1.5-7.1); NEUTROPHIL% 69.8 % (40-75); PLATELET COUNT 142 X10e3 (140-420); RED BLOOD COUNT 4.17 X10e (3.90-5.30); RED CELL DISTRIBUTION WIDTH 14.6 % (11.0-15.5); WHITE BLOOD COUNT 7.6 X10e3 (4.0-10.5)
[2016-10-26 15:20] LABS: DIFF IND NO
[2016-10-26 15:37] LABS: BUN/CREATININE RATIO 35.55; CALCIUM SERUM 8.9 mg/dL (8.4-10.2); CREATININE SERUM 0.9 mg/dL (0.6-1.4); GLOM FILT RATE Estimated 65.3 mL/min (>60); POTASSIUM 3.9 mmol/L (3.5-5.1)
[2016-10-26 15:50] LABS: PROTHROMBIN TIME (PATIENT) 92.8 SECONDS (9.6-11.5)
[2016-10-26 15:52] LABS: INR 8.2; PARTIAL THROMBOPLASTIN TIME 56.7 SECONDS (23.5-31.3)
[2016-10-26] MEDS ORDERED: PATIENT'S PHARMACY (16:35)
[2016-10-26] MEDS ORDERED: AMBIEN10 MG PO (16:35)
[2016-10-26] MEDS ORDERED: AMIODARONE HCL200 MG PO (16:36)
[2016-10-26] MEDS ORDERED: COUMADIN PO (16:36)
[2016-10-26] MEDS ORDERED: ASPIRIN81 M2 PO (16:36)
[2016-10-26] MEDS ORDERED: LIORESAL10 MG PO (16:36)
[2016-10-26] MEDS ORDERED: GLUCOTROL XL2.5 MG PO (16:37)
[2016-10-26] MEDS ORDERED: IRON325 MG PO (16:37)
[2016-10-26] MEDS ORDERED: METOPROLOL TAR25 MG PO (16:38)
[2016-10-26] MEDS ORDERED: NEXIUM 24HR22.3 MG PO (16:38)
[2016-10-26] MEDS ORDERED: LASIX20 MG PO (16:38)
[2016-10-26] MEDS ORDERED: HYDROCODON-ACE1 EAC9 PO (16:39)
[2016-10-26] MEDS ORDERED: ZOFRAN ODT4 M1 PO (16:39)
[2016-10-26] MEDS ORDERED: ZESTRIL10 M1 PO (16:39)
[2016-10-26] MEDS ORDERED: NOVOLOG FL100 UNIT/1 (16:39)
[2016-10-26] MEDS ORDERED: NORVASC PO (16:39)
[2016-10-27 06:18] LABS: INR 3.1
[2016-10-27 06:21] LABS: PROTHROMBIN TIME (PATIENT) 34.1 SECONDS (9.6-11.5)
== END 2016-10-27 12:12 | disposition home health service (06) ==
LOC: CED 13:54 → CEDOF 16:25 → CED 16:36 → CEDOF 16:36 → C5B 16:36 → CEDOF 18:40 → C5B 18:40
PROVIDERS: Emergency Medicine; Internal Medicine
DX: R79.1 Abnormal coagulation profile (principal); I69.351 Hemiplegia and hemiparesis following cerebral infarction affecting right dominant side; J44.9 Chronic obstructive pulmonary disease, unspecified; T45.515A Adverse effect of anticoagulants, initial encounter; Y92.9 Unspecified place or not applicable; E11.9 Type 2 diabetes mellitus without complications; Z79.4 Long term (current) use of insulin; I10 Essential (primary) hypertension; Z87.442 Personal history of urinary calculi; Z90.49 Acquired absence of other specified parts of digestive tract; Z90.710 Acquired absence of both cervix and uterus; G47.33 Obstructive sleep apnea (adult) (pediatric)
CPT/HCPCS: 36415; 80048; 82947; 85025; 85610; 85730; 99285; J3430

== ENCOUNTER 2016-11-08 23:35 | Inpatient (IN) | payer MEDICARE, OTHER ==
--- NOTE | ~2016-11-08 | US6 ---
[facility] A Service of [facility] & [facility] RADIOLOGY TEXT RESULTS PATIENT: JORDI LÓPEZ LOCATION: C4B 451-01 : [birth year] UNIT #: [id number] AGE: [address]: Tasia Wilkerson MD SEX: F ORDER DR: [id number] [facility] [address] [facility] [address]. [place], [place] [address] [id number] I MR#: [id number] Acc #: [id number] NAME: JORDI LÓPEZ. : 1945 SEX: F STUDY DATE/TIME: 11/09/2016 15:12 UNIT: C4 ROOM: [facility] STUDY DESCRIPTION: US Abdominal Limited Attending Physician: Tasia Wilkerson M.D. Ordering Physician: Anderson Matta M.D. Primary Care Physician: Primary Care Physician No MEDICAL IMAGING REPORT This report is preliminary unless electronic signature is present EXAM Right upper quadrant ultrasound, 11/09/2016 HISTORY Right upper quadrant abdominal pain for 2 days. History of cholecystectomy 20 years ago. Hypertension and diabetes. FINDINGS The liver is homogeneous in echotexture and demonstrates no cystic or solid mass lesions. The intrahepatic bile ducts are not dilated. The gallbladder is surgically absent as per patient history. The common duct is dilated to 1.3 cm. No obstructing mass or calculus is seen but the distal aspect of the duct is obscured by bowel gas. If there is clinical concern for choledocholithiasis consider correlation with MRCP. The pancreas is normal in appearance. The right kidney is normal. IMPRESSION Surgical absence of the gallbladder. There is dilatation of the common bile duct to 1.3 cm. No obstructing mass or calculus is seen but the distal aspect of the common duct is obscured by bowel gas. If there is clinical concern for choledocholithiasis, consider correlation with MRCP. Dictated by... Reynaldo Baker M.D. THIS IS AN ELECTRONICALLY VERIFIED REPORT Reynaldo Baker M.D. at 11/10/2016 6:17 AM ENEIDA/lynda TD: 11/09/2016 23:04 JOB #: [id number] [facility] A Service of [facility] & [facility] RADIOLOGY TEXT RESULTS PATIENT: JORDI LÓPEZ LOCATION: [facility] 451-01 : [birth year] UNIT #: [id number] AGE: [address]: Tasia Wilkerson MD SEX: F ORDER DR: MEDICAL IMAGING REPORT Page 1 of 1 COPY
--- NOTE | ~2016-11-08 | BMI ---
[facility] Nutrition Therapy DATE: 11/10/16 Patient: JORDI LÓPEZ Physician: WATSON Address: [address] [place] [address] Room/Bed: [address] [place] [address], Zip: [place] [address] Admit Date: 11/09/16 Date of : [birth year] Height: 5 2 Weight: 249 113.3 HIGH BMI NOTE: ANTHROPOMETRICS: HT: 5'2" WT: 113.3 KG BMI: 45.7 DIET: CLEAR LIQUID RECOMMENDATIONS: 1. ONCE MEDICALLY FEASIBLE, ADVANCE THE PT TO A HEART HEALTHY DIET TOLERATED TO PROMOTE GRADUAL WEIGHT LOSS. Respectfully, PADILLA [address], LD [employer] [facility] cc: client file
--- NOTE | ~2016-11-08 | XA231 ---
[facility] A Service of [facility] RADIOLOGY TEXT RESULTS PATIENT: JORDI LÓPEZ LOCATION: [place] [address] : [birth year] UNIT #: [id number] AGE: [address]: Jose Roberto Marrufo MD SEX: F ORDER DR: [id number] [address] [address] [id number] I MR#: [id number] #: [id number] NAME: JORDI LÓPEZ : 1945 SEX: F STUDY DATE/TIME: 11/12/2016 16:03 UNIT: [facility] ROOM: [facility] STUDY DESCRIPTION: XA Consult Attending Physician: Jose Roberto Marrufo M.D. Ordering Physician: Jose Roberto Marrufo M.D. Primary Care Physician: Primary Care Physician No MEDICAL IMAGING REPORT This report is preliminary unless electronic signature is present EXAM Interventional radiology consultation HISTORY Low back pain after a fall 2 weeks ago. HISTORY OF PRESENT ILLNESS 71-year-old female who presents with a history of fall 2, complaining of lower back pain. She was found to have a compression fracture at the T11 level. She is referred for kyphoplasty consultation. PAST MEDICAL HISTORY 1. Multiple strokes. 2. obesity. 3. Congestive heart failure. 4. Diabetes mellitus. 5. Peripheral arterial disease. 6. Atrial fibrillation. 7. Hypertension. 8. Hyperlipidemia. 9. On Coumadin, Coumadin toxic presently. MEDICATIONS Please see patient's chart. SURGICAL HISTORY Appendectomy, carotid endarterectomy, partial hysterectomy, cholecystectomy. PHYSICAL EXAMINATION The patient is point tender over the lower thoracic spine at the level of the compression fracture. [facility] A Service of [facility] RADIOLOGY TEXT RESULTS PATIENT: JORDI LÓPEZ LOCATION: [place] [address] : [birth year] UNIT #: [id number] AGE: [address]: Jose Roberto Marrufo MD SEX: F ORDER DR: IMAGING STUDIES CT scan of the abdomen and pelvis 11/09/2016 shows a 30% to 40% compression fracture of the T11 level. This is not present on the patient's prior study of August 13, 2016. ASSESSMENT AND PLAN The patient has an acute compression fracture of T11. She is complaining of severe back pain not adequately controlled by narcotics. She is currently Coumadin toxic. The patient will be scheduled for kyphoplasty upon her INR returning to 1.54 or less. Findings and plan discussed at length with the patient. She understands and consents. STAT * RESULT Dictated by... John Llamas M.D. THIS IS AN ELECTRONICALLY VERIFIED REPORT John Llamas M.D. at 11/13/2016 3:38 PM Malgorzata TD: 11/13/2016 09:43 JOB #: [id number] MEDICAL IMAGING REPORT Page 1 of 1 COPY
--- NOTE | ~2016-11-08 | DS ---
Unit #: [id number] #: [id number] Patient: JORDI LÓPEZ [id number] [address] [address] [id number] I MR#: [id number] NAME: JORDI LÓPEZ ROOM: 475 Age: 71 Sex: F Admission Date: 11/09/2016 : 1945 Discharge Date: 11/17/2016 Attending Physician: Jose Roberto Marrufo M.D. Primary Care Physician: No Primary Care Physician DISCHARGE SUMMARY PRINCIPAL DISCHARGE DIAGNOSES 1. T11 compression fracture. 2. Status post kyphoplasty of T11 compression fracture on November 14, 2016. 3. Enterococcal urinary tract infection. 4. Nonspecific colitis. 5. Idiopathic pancreatitis. 6. 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 7. Acute kidney injury. 8. Obstructive sleep apnea syndrome. 9. Type 2 diabetes mellitus. 10. Chronic systolic congestive heart failure. 11. Hypertension. 12. Hyperlipidemia. 13. Peripheral arterial disease. 14. Hyponatremia. 15. Gastroesophageal reflux disease. 16. Morbid obesity. 17. Status post appendectomy. 18. Status post right carotid endarterectomy. 19. Status post hysterectomy. 20. Status post cholecystectomy. PROCEDURE Kyphoplasty, November 14, 2016. CONSULTANTS 1. Dr. Matta from GI services. 2. Dr. Mancera from interventional radiology. REASON FOR HOSPITALIZATION Patient is a 71-year-old obese white female with history of iron-deficiency anemia, chronic systolic CHF, multiple CVAs, right hemiparesis, obstructive sleep apnea syndrome, type 2 diabetes mellitus, peripheral arterial disease, paroxysmal atrial fibrillation, hypertension, hyperlipidemia. She had a fall about a week prior to admission and complained of abdominal pain, low back pain, nausea, vomiting, diarrhea. Arrived in the emergency room afebrile. There was documented low blood pressure in the 80s per EMS but it spontaneously resolved after she arrived in the emergency room. PT/INR was slightly higher. She had some acute kidney injury. Amylase and lipase were elevated. White count was elevated. CT scan showed a compression fracture of T11 as well as evidence of colitis. Urinalysis showed pyuria and the patient was admitted. Unit #: [id number] #: [id number] Patient: JORDI LÓPEZ HOSPITAL COURSE The patient was started on Zosyn and Flagyl, made NPO. GI services were consulted. Interventional radiology was consulted. She was given pain medicine. She was not scoped during this admission and she had a recent colonoscopy about four months ago that was normal. Stools were sent for C. difficile toxin. Shigella and campylobacter were all negative. Amylase and lipase quickly normalized without further intervention. She was hydrated for acute kidney injury. Urine culture grew enterococcus greater than 10 to the . Her Coumadin was held. Kyphoplasty was performed and her INR was less than 1.5, which was done on the . She had improvement in her pain. Her Barrios has been discontinued. She had a bowel movement yesterday with laxative of choice. Currently, she is on Lovenox and Coumadin. She has a few more days of antibiotics, requesting rehab placement which has been performed. She is to be moved to [place] today. She is on a constant carb diet. DISCHARGE MEDICATIONS She was given a prescription for: 1. Ambien 5 mg p.o. nightly p.r.n. for insomnia. 2. Lortab 7.5/325 one q.4 hours p.r.n. for pain #120. Her other meds: 1. Zofran ODT 4 mg p.o. q.6 hours p.r.n. for nausea. 2. Amiodarone 200 mg p.o. daily. 3. Lovenox 40 mg subcutaneous daily, discontinue when PT/INR is above 2. 4. Warfarin 1.5 mg p.o. daily. 5. Lopressor 25 mg b.i.d. 6. Milk of Magnesium 30 mL p.o. daily p.r.n. for constipation. 7. Zestril 10 mg p.o. daily. 8. Low-dose NovoLog sliding scale insulin a.c. and at bedtime. 9. Flagyl 500 mg t.i.d. for an additional six days. 10. Aspirin 81 mg daily. 11. Nexium 22.3 mg daily. 12. Glucotrol XL 2.5 mg p.o. daily with breakfast. 13. Macrobid 100 mg b.i.d. for two more days. PLAN She will need to have a followup urinalysis in about five days. She will need a daily pro time until her INR is stable. Dictated by... Jesse Williamson/julieth TD: 11/17/2016 08:21 JOB #: [id number] Unit #: [id number] #: [id number] Patient: JORDI LÓPEZ DISCHARGE SUMMARY Page 1 of 1 X Jose Roberto Marrufo MD X DISCHARGE SUMMARY
--- NOTE | ~2016-11-08 | XA149 ---
[facility] A Service of [facility] & [facility] RADIOLOGY TEXT RESULTS PATIENT: JORDI ALVARADO LOCATION: [facility] [place] [facility] [id number] : [birth year] UNIT #: [id number] AGE: [address]: Jose Roberto Marrufo MD SEX: F ORDER DR: [id number] [facility] [address] [facility] [place], [place] [address] [id number] I MR#: [id number] Acc #: [id number] NAME: JORDI ALVARADO : 1945 SEX: F STUDY DATE/TIME: 11/14/2016 10:58 UNIT: [facility] [place] [facility] ROOM: [facility] STUDY DESCRIPTION: XA Kyphoplasty Thoracic Attending Physician: Jose Roberto Marrufo M.D. Ordering Physician: Jose Roberto aMrrufo M.D. Primary Care Physician: No Primary Care Physician MEDICAL IMAGING REPORT This report is preliminary unless electronic signature is present EXAM Fluoroscopic-guided kyphoplasty. HISTORY Ms. Alvarado is a 71-year lady who was noted have a T11 vertebral body fracture on the CT scan performed 11/09/16. She has been referred for fluoroscopic guided kyphoplasty FINDINGS The procedure was explained to the patient including risks, benefits, potential complications, potential for alternative forms of treatment, and informed consent was obtained. Prior to initiating procedure a formal time-out procedure was performed. Using all elements of maximal sterile barrier technique including hand hygiene caps sterile gowns, gloves masks, the back was prepped 2% chlorhexidine, cutaneous antisepsis and covered with a sterile sheet. Skin and subcutaneous tissues overlying the patient's left T11 pedicle were anesthetized with lidocaine and Bupivacaine. A kyphoplasty cannula was advanced down the left pedicle of T11. This was positioned within the posterior aspect of the T11 vertebral body. At this point, I turned my attention to the right pedicle, and the skin and subcutaneous tissues were anesthetized with buffered lidocaine and the kyphoplasty cannula was advanced along the right pedicle of T11 and the posterior aspect to the vertebral body. At this point, a bone marrow biopsy was obtained. I then advanced a drill through both cannulas. Following this, deployed the balloons through both cannulas. Balloons were then removed and cement was instilled into the vertebral body. Cannulas were then removed and final fluoroscopic images were obtained which showed adequate filling of the vertebral body with no extravasation of cement. The patient tolerated the procedure well. There [facility] A Service of [facility] RADIOLOGY TEXT RESULTS PATIENT: JORDI ALVARADO LOCATION: [place] [id number]- : [birth year] UNIT #: [id number] AGE: [address]: Jose Roberto Marrufo MD SEX: F ORDER DR: were no immediate complications. She did receive moderate sedation consisting of 4.5 mg of Versed and 150 mcg of fentanyl. I supervised the IVR nurse and monitored the patient's vital signs for a total of 36 minutes of face to face time. Total fluoroscopy time was 3.2 minutes. AK was 526 mGy. IMPRESSION Technically successful fluoroscopically guided kyphoplasty as noted above. Fluoroscopy was used during the procedure, and permanent images were saved. Dictated by... Sosa Mancera M.D. THIS IS AN ELECTRONICALLY VERIFIED REPORT Sosa Mancera M.D. at 11/19/2016 5:22 PM TAMARA/virgen TD: 11/16/2016 14:44 JOB #: [id number] MEDICAL IMAGING REPORT Page 1 of 1 COPY
--- NOTE | ~2016-11-08 | CT4 ---
[facility] A Service of [facility] & [facility] RADIOLOGY TEXT RESULTS PATIENT: JORDI LÓPEZ LOCATION: [facility] [id number] : [birth year] UNIT #: [id number] AGE: [address]: Tasia Wilkerson MD SEX: F ORDER DR: [id number] [facility] [address] [place], [place] [address] [id number] I MR#: [id number] Acc #: [id number] NAME: JORDI LÓPEZ. : 1945 SEX: F STUDY DATE/TIME: 11/09/2016 3:33 UNIT: [facility] ROOM: 18684 STUDY DESCRIPTION: CT Abd and Pelv Wo Cont Attending Physician: Tasia Wilkerson M.D. Ordering Physician: Patrcik Dalton M.D. Primary Care Physician: No Primary Care Physician MEDICAL IMAGING REPORT This report is preliminary unless electronic signature is present EXAM CT abdomen and pelvis, 11/09. INDICATIONS Abdominal pain radiating to the back for the last 7 days. TECHNIQUE Axial images were obtained through the abdomen and pelvis following oral contrast administration. Multiplanar reformats were obtained. Comparison made with 08/13/2016. This CT exam was performed with one or more of the following radiation dose reduction techniques: automatic exposure control, adjustment of mA and/or kV according to patient size, and iterative reconstruction. FINDINGS Abdomen: The lung bases are clear. Mitral annulus calcifications noted. There is a small hiatal hernia which is stable. Gallbladder surgically absent. No biliary obstruction. Tiny nonobstructing stone or vascular calcification noted lower pole left kidney. No ureteral stones on either side and no hydronephrosis is seen. The unenhanced solid organs are otherwise normal. The GI tract is normal. No free fluid is seen. Pelvis: There is a small fat-containing umbilical hernia. The appendix is surgically absent. Mild wall thickening is present in the rectosigmoid colon suggesting mild lower colitis. Urinary bladder is normal. There are no lower ureteral stones. Uterus is surgically absent. No free fluid. Paget disease is noted in the right hemipelvis. Severe dysplasia of the left hip is again seen with less severe dysplasia on the right hip. There is an acute appearing T11 compression fracture with about 40% loss of height centrally. There is minimal retropulsion into the spinal canal. IMPRESSION 1. Mild wall thickening in the rectosigmoid colon suggesting mild STS. [facility] A Service of [facility] & [facility] RADIOLOGY TEXT RESULTS PATIENT: JORDI LÓPEZ LOCATION: [facility] [id number] : [birth year] UNIT #: [id number] AGE: [address]: Tasia Wilkerson MD SEX: F ORDER DR: colitis. 2. Acute appearing compression fracture of T11 with about 40% loss of height. There is minimal retropulsion into the spinal canal along the superior endplate. No other acute fractures are seen. 3. Tiny nonobstructing stone versus vascular calcification in the left kidney. No ureteral stones are seen and there is no hydronephrosis. 4. Status post cholecystectomy, appendectomy, and hysterectomy. Dictated by... Maikel Boland Jr., M.D. THIS IS AN ELECTRONICALLY VERIFIED REPORT Maikel Boland Jr., M.D. at 11/09/2016 11:28 AM JOSHUA/maya TD: 11/09/2016 10:03 JOB #: [id number] MEDICAL IMAGING REPORT Page 1 of 1 COPY
--- NOTE | ~2016-11-08 | HP ---
Unit #: [id number] #: [id number] Patient: JORDI LÓPEZ [id number] [address] [place], [place] [address] [id number] I MR#: [id number] NAME: JORDI LÓPEZ. ROOM: 62829 Age: 71 Sex: F Admission Date: 11/09/2016 : 1945 Attending Physician: Tasia Wilkerson M.D. Primary Care Physician: No Primary Care Physician HISTORY AND PHYSICAL HISTORY OF PRESENT ILLNESS 71-year-old, obese, white female, with a history of iron deficiency anemia, chronic systolic CHF, multiple CVAs, right hemiparesis, obstructive sleep apnea syndrome, type 2 diabetes mellitus, peripheral arterial disease, paroxysmal atrial fibrillation, hypertension, hyperlipidemia, on Coumadin, recent admission for Coumadin toxicity. Discharged home. Apparently had a fall a week ago, complaining of abdominal pain, low back pain, nausea and vomiting, diarrhea x1. Arrived in the emergency room afebrile. Apparently was hypotensive per EMS at home with a systolic in the 80s but it was fine here. Her PT/INR was slightly high. She had some acute kidney injury. Her amylase was elevated with a normal lipase. White count was elevated. CT scan of the abdomen and pelvis was apparently performed although I don't have any reports that apparently showed colitis and a compression fracture of one of her vertebrae and she is admitted for further evaluation. The patient has been on no recent antibiotics. She has not sought any medical advice since she fell a week ago until she came to the emergency room. She is being admitted for further evaluation and therapy. ALLERGIES She has no known drug allergies. MEDICATIONS Her meds prior to admission: 1. Ambien 10 mg q. h.s. 2. Amiodarone 200 mg daily. 3. Aspirin 81 mg daily. 4. Baclofen 10 mg t.i.d. 5. Coumadin 1.5 mg daily. 6. Glucotrol XL 2.5 mg b.i.d. 7. Iron 325 mg daily. 8. Lasix 40 mg daily. 9. Metoprolol tartrate 25 mg b.i.d. 10. Nexium 22.3 mg daily. 11. [place] 7.5/325, one q.6 hours p.r.n. for pain. 12. Norvasc 5 mg p.o. daily. 13. Sliding scale NovoLog a.c. and h.s. 14. Zestril 10 mg daily. 15. Zofran ODT 4 mg q.6 hours p.r.n. for nausea or vomiting. PAST MEDICAL HISTORY 1. Multiple CVAs. 2. Obesity. 3. Chronic anticoagulation. Unit #: [id number] #: [id number] Patient: JORDI LÓPEZ 4. Hyperlipidemia. 5. Hypertension. 6. Type 2 diabetes mellitus. 7. Obstructive sleep apnea syndrome. 8. Left hip dysplasia. 9. GE reflux disease. 10. Right hemiparesis. SURGICAL HISTORY 1. Appendectomy. 2. Right carotid endarterectomy. 3. Partial hysterectomy. 4. Cholecystectomy. 5. Note - she had a colonoscopy and EGD 08/17/16 for iron deficiency anemia which she was found to have sigmoid diverticular disease and mild duodenitis. SOCIAL HISTORY She is . Nonsmoker, nondrinker, no street drug use. FAMILY HISTORY Noncontributory. PHYSICAL EXAMINATION GENERAL: She is awake, alert, oriented x3, in no acute distress. VITAL SIGNS: Afebrile. Pulse 78, respirations 12, blood pressure 127/79. O2 sat 95% on room air. HEENT: Unremarkable. NECK: Supple without JVD, bruits, adenopathy or thyromegaly. CHEST: Clear to auscultation. HEART: Regular rate and rhythm without any murmurs, rubs or gallops. ABDOMEN: Soft, nondistended, diffusely tender, particularly in the left lower quadrant and epigastric area without any guarding or rebound. Positive bowel sounds. No hepatosplenomegaly but she is so obese that it would be difficult to tell. EXTREMITIES: Show a bruise on her left foreleg pretibial area but no clubbing, cyanosis or edema. /RECTAL: Deferred. NEUROLOGICAL: Only shows evidence of the right hemiparesis without any new focal deficits. DIAGNOSTIC STUDIES LABORATORY: PT/INR 3.1, PTT 32.7. CMP normal except for random blood sugar of 227, BUN of 29, creatinine of 1.6. GFR of 32, alk. phos. 137, amylase 283, lipase normal. White count 16.5. Hemoglobin and platelets normal. Urinalysis - trace leukocytes, 1+ protein, 1+ blood, 25-50 WBCs, negative for nitrates, negative for bacteria. IMAGING: CT scan of the abdomen and pelvis was mentioned above. Reportedly shows colitis and a compression fracture of her L-spine but I don't know which level. IMPRESSION 1. Low back pain. 2. Compression fracture. Unit #: [id number] #: [id number] Patient: JORDI LÓPEZ 3. Questionable colitis. 4. Questionable pancreatitis. 5. Acute kidney injury. 6. Obesity. 7. Paroxysmal atrial fibrillation. 8. Anticoagulated. 9. Obstructive sleep apnea syndrome. 10. Type 2 diabetes mellitus. 11. Chronic systolic congestive heart failure. 12. Old cerebrovascular accident. 13. Right hemiparesis. 14. Peripheral arterial disease. 15. Hypertension. 16. Hyperlipidemia. PLAN Clear liquid diet, IV fluids. Hold Lasix, hold Norvasc, hold Zestril. Consult interventional radiology for possible kyphoplasty. Consult GI for further evaluation of possible pancreatitis and colitis. Stool for C. diff. Accu-Cheks a.c. and h.s. Low dose sliding scale insulin. Hold anticoagulation for possible IVR intervention. Follow protimes, white count, renal function. Dictated by Jose Roberto Marrufo M.D. EVERARDO/lelia TD: 11/09/2016 08:40 JOB #: [id number] HISTORY AND PHYSICAL Page 1 of 1 X Jose Roberto Marrufo MD X HISTORY AND PHYSICAL
[~2016-11-08 23:35] MED LIST changes: +AMBIEN10 MG PO; +AMIODARONE HCL200 MG PO; +ASPIRIN81 M2 PO; +GLUCOTROL XL2.5 MG PO; +IRON325 MG PO; +LASIX20 MG PO; +LIORESAL10 MG PO; +METOPROLOL TAR25 MG PO; +NEXIUM 24HR22.3 MG PO; +NOVOLOG FL100 UNIT/1; +PATIENT'S PHARMACY; +ZESTRIL10 M1 PO; +ZOFRAN ODT4 M1 PO
[2016-11-09 01:12] LABS: BASOPHIL# 0.1 X10e3 (0-0.3); BASOPHIL% 0.6 % (0-2.5); EOSINOPHIL% 0.3 % (0.0-7.0); HEMATOCRIT 43.8 % (35.0-45.0); HEMOGLOBIN 14.2 gm/dL (12.0-16.0); LYMPHOCYTE# 1.4 X10e3 (1.0-3.5); LYMPHOCYTE% 8.4 % (17.0-45.0); MEAN CELL VOLUME 87.5 FL (83-96); MEAN CORPUSCULAR HEMOGLOBIN 28.3 PG (28-34); MEAN CORPUSCULAR HGB CONC 32.4 g/dL (30-36); MEAN PLATELET VOLUME 10.9 FL (6.5-11.5); MONOCYTE# 1.2 X10e3 (0-1.0); MONOCYTE% 7.2 % (3.0-12.0); NEUTROPHIL# 13.8 X10e3 (1.5-7.1); NEUTROPHIL% 83.5 % (40-75); PLATELET COUNT 211 X10e3 (140-420); RED CELL DISTRIBUTION WIDTH 14.2 % (11.0-15.5); WHITE BLOOD COUNT 16.5 X10e3 (4.0-10.5)
[2016-11-09 01:16] LABS: DIFF IND YES
[2016-11-09 01:23] LABS: INR 3.1; PARTIAL THROMBOPLASTIN TIME 32.7 SECONDS (23.5-31.3); PROTHROMBIN TIME (PATIENT) 34.1 SECONDS (10.0-11.7)
[2016-11-09 01:44] LABS: BILIRUBIN, DIRECT 0.2 mg/dL (0.0-0.2); BILIRUBIN,INDIRECT 0.4 mg/dL (0.0-0.9); BILIRUBIN,TOTAL 0.6 mg/dL (0.2-2.0); BUN/CREATININE RATIO 18.12; CALCIUM SERUM 9.1 mg/dL (8.4-10.2); CREATININE SERUM 1.6 mg/dL (0.6-1.4); GLOM FILT RATE Estimated 32.6 mL/min (>60); POTASSIUM 3.5 mmol/L (3.5-5.1)
[2016-11-09 01:46] LABS: PLATELET ESTIMATE NORMAL (NORMAL); RBC NORMAL YES
[2016-11-09 04:13] LABS: URINE SOURCE CLEAN CATCH
[2016-11-09 04:18] LABS: URINE APPEARANCE CLOUDY; URINE BILIRUBIN NEG (NEG); URINE BLOOD 1+ (NEG); URINE COLOR YELLOW; URINE GLUCOSE NEG (NEG); URINE KETONE NEG (NEG); URINE LEUKOCYTE ESTERASE TRACE (NEG); URINE NITRATE NEG (NEG); URINE PROTEIN 1+ (NEG); URINE SPECIFIC GRAVITY 1.014 (1.003-1.035)
[2016-11-09 04:19] LABS: CULTURE INDICATED? YES; URINE BACTERIA AUWI NEG (NEGATIVE); URINE SQUAMOUS EPITHELIAL CELL OCC /[HPF]; UWBCS1 AUWI 25-50 (0-5)
[2016-11-09 04:29] LABS: URINE GRANULAR CAST 0-2 /[HPF]
[2016-11-10 03:55] LABS: BASOPHIL# 0.1 X10e3 (0-0.3); BASOPHIL% 0.7 % (0-2.5); EOSINOPHIL# 0.2 X10e3 (0-0.7); EOSINOPHIL% 2.5 % (0.0-7.0); HEMATOCRIT 34.2 % (35.0-45.0); LYMPHOCYTE# 2.3 X10e3 (1.0-3.5); LYMPHOCYTE% 29.2 % (17.0-45.0); MEAN CELL VOLUME 87.2 FL (83-96); MEAN CORPUSCULAR HEMOGLOBIN 28.3 PG (28-34); MEAN CORPUSCULAR HGB CONC 32.5 g/dL (30-36); MEAN PLATELET VOLUME 10.3 FL (6.5-11.5); MONOCYTE# 0.7 X10e3 (0-1.0); MONOCYTE% 9.3 % (3.0-12.0); NEUTROPHIL# 4.5 X10e3 (1.5-7.1); NEUTROPHIL% 58.3 % (40-75); PLATELET COUNT 145 X10e3 (140-420); RED BLOOD COUNT 3.93 X10e (3.90-5.30); RED CELL DISTRIBUTION WIDTH 14.1 % (11.0-15.5)
[2016-11-10 04:00] LABS: DIFF IND NO; HEMOGLOBIN 11.1 gm/dL (12.0-16.0); WHITE BLOOD COUNT 7.8 X10e3 (4.0-10.5)
[2016-11-10 04:02] LABS: INR 3.1; PROTHROMBIN TIME (PATIENT) 33.6 SECONDS (10.0-11.7)
[2016-11-10 04:21] LABS: ALBUMIN SERUM 3.3 g/dL (3.5-5.0); BILIRUBIN,TOTAL 0.6 mg/dL (0.2-2.0); CALCIUM SERUM 8.2 mg/dL (8.4-10.2); GLOM FILT RATE Estimated 57.5 mL/min (>60); PROTEIN TOTAL SERUM 6.5 g/dL (6.0-8.3)
[2016-11-11 04:07] LABS: BASOPHIL# 0.1 X10e3 (0-0.3); BASOPHIL% 0.8 % (0-2.5); EOSINOPHIL# 0.3 X10e3 (0-0.7); EOSINOPHIL% 3.6 % (0.0-7.0); HEMOGLOBIN 11.5 gm/dL (12.0-16.0); LYMPHOCYTE% 27.7 % (17.0-45.0); MEAN CELL VOLUME 88.1 FL (83-96); MEAN CORPUSCULAR HEMOGLOBIN 28.2 PG (28-34); MEAN PLATELET VOLUME 10.6 FL (6.5-11.5); MONOCYTE# 0.7 X10e3 (0-1.0); MONOCYTE% 9.6 % (3.0-12.0); NEUTROPHIL# 4.1 X10e3 (1.5-7.1); NEUTROPHIL% 58.3 % (40-75); PLATELET COUNT 128 X10e3 (140-420); RED BLOOD COUNT 4.09 X10e (3.90-5.30); RED CELL DISTRIBUTION WIDTH 14.1 % (11.0-15.5); WHITE BLOOD COUNT 7.1 X10e3 (4.0-10.5)
[2016-11-11 04:08] LABS: DIFF IND NO
[2016-11-11 04:20] LABS: INR 3.5; PROTHROMBIN TIME (PATIENT) 37.9 SECONDS (10.0-11.7)
[2016-11-11 04:32] LABS: ALBUMIN SERUM 3.3 g/dL (3.5-5.0); BILIRUBIN,TOTAL 0.5 mg/dL (0.2-2.0); BUN/CREATININE RATIO 21.42; CALCIUM SERUM 8.6 mg/dL (8.4-10.2); CREATININE SERUM 0.7 mg/dL (0.6-1.4); GLOM FILT RATE Estimated 88.4 mL/min (>60); MAGNESIUM 1.9 mg/dL (1.6-3.0); POTASSIUM 3.8 mmol/L (3.5-5.1); PROTEIN TOTAL SERUM 6.4 g/dL (6.0-8.3)
[2016-11-12 03:24] LABS: HEMATOCRIT 34.9 % (35.0-45.0); HEMOGLOBIN 11.4 gm/dL (12.0-16.0); MEAN CORPUSCULAR HEMOGLOBIN 28.5 PG (28-34); MEAN CORPUSCULAR HGB CONC 32.7 g/dL (30-36); MEAN PLATELET VOLUME 10.3 FL (6.5-11.5); RED BLOOD COUNT 4.01 X10e (3.90-5.30); RED CELL DISTRIBUTION WIDTH 13.9 % (11.0-15.5); WHITE BLOOD COUNT 6.3 X10e3 (4.0-10.5)
[2016-11-12 03:38] LABS: INR 3.1; PROTHROMBIN TIME (PATIENT) 33.3 SECONDS (10.0-11.7)
[2016-11-12 03:52] LABS: BUN/CREATININE RATIO 12.5; CALCIUM SERUM 8.5 mg/dL (8.4-10.2); CREATININE SERUM 0.8 mg/dL (0.6-1.4); GLOM FILT RATE Estimated 75.3 mL/min (>60); MAGNESIUM 1.8 mg/dL (1.6-3.0); POTASSIUM 3.7 mmol/L (3.5-5.1)
[2016-11-13 06:04] LABS: BASOPHIL# 0.1 X10e3 (0-0.3); BASOPHIL% 0.8 % (0-2.5); EOSINOPHIL# 0.2 X10e3 (0-0.7); EOSINOPHIL% 3.5 % (0.0-7.0); HEMATOCRIT 35.8 % (35.0-45.0); HEMOGLOBIN 11.7 gm/dL (12.0-16.0); LYMPHOCYTE# 1.9 X10e3 (1.0-3.5); LYMPHOCYTE% 27.3 % (17.0-45.0); MEAN CELL VOLUME 87.4 FL (83-96); MEAN CORPUSCULAR HEMOGLOBIN 28.6 PG (28-34); MEAN CORPUSCULAR HGB CONC 32.7 g/dL (30-36); MEAN PLATELET VOLUME 10.9 FL (6.5-11.5); MONOCYTE# 0.7 X10e3 (0-1.0); MONOCYTE% 10.2 % (3.0-12.0); NEUTROPHIL% 58.2 % (40-75); PLATELET COUNT 151 X10e3 (140-420); RED CELL DISTRIBUTION WIDTH 14.2 % (11.0-15.5); WHITE BLOOD COUNT 6.9 X10e3 (4.0-10.5)
[2016-11-13 06:11] LABS: DIFF IND NO
[2016-11-13 06:16] LABS: INR 1.5; PARTIAL THROMBOPLASTIN TIME 30.9 SECONDS (23.5-31.3)
[2016-11-13 06:19] LABS: PROTHROMBIN TIME (PATIENT) 15.9 SECONDS (10.0-11.7)
[2016-11-13 07:15] LABS: BUN/CREATININE RATIO 18.88; CALCIUM SERUM 8.6 mg/dL (8.4-10.2); CREATININE SERUM 0.9 mg/dL (0.6-1.4); GLOM FILT RATE Estimated 65.3 mL/min (>60); MAGNESIUM 1.5 mg/dL (1.6-3.0); POTASSIUM 3.9 mmol/L (3.5-5.1)
[2016-11-14 03:29] LABS: INR 1.2; PROTHROMBIN TIME (PATIENT) 13.4 SECONDS (10.0-11.7)
[2016-11-14 03:35] LABS: MAGNESIUM 1.8 mg/dL (1.6-3.0); POTASSIUM 3.9 mmol/L (3.5-5.1)
[2016-11-15 03:49] LABS: HEMATOCRIT 36.8 % (35.0-45.0); MEAN CELL VOLUME 86.6 FL (83-96); MEAN CORPUSCULAR HEMOGLOBIN 28.2 PG (28-34); MEAN CORPUSCULAR HGB CONC 32.6 g/dL (30-36); MEAN PLATELET VOLUME 10.6 FL (6.5-11.5); RED BLOOD COUNT 4.25 X10e (3.90-5.30); RED CELL DISTRIBUTION WIDTH 14.4 % (11.0-15.5); WHITE BLOOD COUNT 10.1 X10e3 (4.0-10.5)
[2016-11-15 04:12] LABS: CALCIUM SERUM 8.6 mg/dL (8.4-10.2); GLOM FILT RATE Estimated 57.5 mL/min (>60); MAGNESIUM 1.7 mg/dL (1.6-3.0); POTASSIUM 4.1 mmol/L (3.5-5.1)
[2016-11-16 03:21] LABS: HEMATOCRIT 35.7 % (35.0-45.0); HEMOGLOBIN 11.5 gm/dL (12.0-16.0); MEAN CELL VOLUME 87.8 FL (83-96); MEAN CORPUSCULAR HEMOGLOBIN 28.2 PG (28-34); MEAN CORPUSCULAR HGB CONC 32.2 g/dL (30-36); MEAN PLATELET VOLUME 11.7 FL (6.5-11.5); RED BLOOD COUNT 4.07 X10e (3.90-5.30); RED CELL DISTRIBUTION WIDTH 14.2 % (11.0-15.5); WHITE BLOOD COUNT 8.1 X10e3 (4.0-10.5)
[2016-11-16 03:36] LABS: INR 1.2; PROTHROMBIN TIME (PATIENT) 13.3 SECONDS (10.0-11.7)
[2016-11-16 03:48] LABS: BUN/CREATININE RATIO 45.55; CALCIUM SERUM 8.6 mg/dL (8.4-10.2); CREATININE SERUM 0.9 mg/dL (0.6-1.4); GLOM FILT RATE Estimated 65.3 mL/min (>60); MAGNESIUM 1.9 mg/dL (1.6-3.0); POTASSIUM 4.5 mmol/L (3.5-5.1)
[2016-11-17 03:24] LABS: INR 1.2; PROTHROMBIN TIME (PATIENT) 13.4 SECONDS (10.0-11.7)
[2016-11-17 03:31] LABS: BUN/CREATININE RATIO 38.88; CALCIUM SERUM 8.7 mg/dL (8.4-10.2); CREATININE SERUM 0.9 mg/dL (0.6-1.4); GLOM FILT RATE Estimated 65.3 mL/min (>60); POTASSIUM 4.8 mmol/L (3.5-5.1)
== END 2016-11-17 15:05 | DRG 477 ==
LOC: CED 23:35 → C4C 11-09 05:00 → CEDOF 11-09 05:00 → CED 11-09 05:22 → CEDOF 11-09 05:22 → C4B 11-09 19:56 → C4C 11-10 19:31
PROVIDERS: Emergency Medicine; Internal Medicine; Radiology Diagnostic Radiology
PROC: 0PS43ZZ Reposition Thoracic Vertebra, Percutaneous Approach (ICD-10-PCS; principal; 2016-11-14)
PROC: 0PB43ZX Excision of Thoracic Vertebra, Percutaneous Approach, Diagnostic (ICD-10-PCS; 2016-11-14)
PROC: 0PU43JZ Supplement Thoracic Vertebra with Synthetic Substitute, Percutaneous Approach (ICD-10-PCS; 2016-11-14)
DX: S22.089A Unspecified fracture of T11-T12 vertebra, initial encounter for closed fracture (principal); K85.00 Idiopathic acute pancreatitis without necrosis or infection; N17.9 Acute kidney failure, unspecified; I69.951 Hemiplegia and hemiparesis following unspecified cerebrovascular disease affecting right dominant side; I11.0 Hypertensive heart disease with heart failure; I50.22 Chronic systolic (congestive) heart failure; E87.1 Hypo-osmolality and hyponatremia; E11.9 Type 2 diabetes mellitus without complications; B95.2 Enterococcus as the cause of diseases classified elsewhere; N39.0 Urinary tract infection, site not specified; Z68.42 Body mass index [BMI] 45.0-49.9, adult; I48.0 Paroxysmal atrial fibrillation; M54.5 Low back pain; Z79.01 Long term (current) use of anticoagulants; G47.33 Obstructive sleep apnea (adult) (pediatric); I73.9 Peripheral vascular disease, unspecified; E78.5 Hyperlipidemia, unspecified; W19.XXXA Unspecified fall, initial encounter; K52.9 Noninfective gastroenteritis and colitis, unspecified; Z90.710 Acquired absence of both cervix and uterus; Z90.49 Acquired absence of other specified parts of digestive tract; E66.01 Morbid (severe) obesity due to excess calories
CPT/HCPCS: 36415; 51702; 74176; 76140; 76705; 80048; 80053; 80076; 81003; 82150; 82947; 83690; 83735; 84132; 85025; 85027; 85610; 85730; 87045; 87086; 87088; 87186; 87427; 87493; 87899; 88305; 88311; 88313; 88323; 88341; 88342; 96361; 96365; 97110; 97163; 97530; 99285; C1713; C9113; G8978-GP; G8979-GP; J0360; J0690; J1650; J1815; J2250; J2405; J2543; J3010; J3475; Q9967

== ENCOUNTER 2016-12-13 20:37 | Observation (INO) | payer MEDICARE, OTHER ==
[~2016-12-13] VITALS: Ht 157.5 cm; Wt 114.0 kg
--- NOTE | ~2016-12-13 | EKG ---
PATIENT: JORDI LÓPEZ UNIT #: [id number] Ventricular Rate: 59 BPM Atrial Rate: 59 BPM P-R Interval: 212 ms QRS Duration: 90 ms Q-T Interval: 476 ms QTC Calculation(Bezet): 471 ms P [place]: 46 degrees Calculated R [place]: 24 degrees Calculated T [place]: 33 degrees Diagnosis Line: Sinus bradycardia with 1st degree A-V block with Diagnosis Line: Premature atrial complexes Diagnosis Line: Otherwise normal ECG Diagnosis Line: When compared with ECG of 13-DEC-2016 20:51, Diagnosis Line: Premature atrial complexes are now Present Diagnosis Line: Criteria for Septal infarct are no longer Present Diagnosis Line: Confirmed by ZINA SMITH MD ([id number]) on Diagnosis Line: 12/14/2016 9:55:17 AM INTERPRETING MD: LUIS HYATT
--- NOTE | ~2016-12-13 | EKG ---
PATIENT: JORDI LÓPEZ UNIT #: [id number] Ventricular Rate: 62 BPM Atrial Rate: 62 BPM P-R Interval: 210 ms QRS Duration: 72 ms Q-T Interval: 452 ms QTC Calculation(Bezet): 458 ms P [place]: 53 degrees Calculated R [place]: 11 degrees Calculated T [place]: 18 degrees Diagnosis Line: Sinus rhythm with 1st degree A-V block Diagnosis Line: Minimal voltage criteria for LVH, may be normal Diagnosis Line: variant Diagnosis Line: Septal infarct , age undetermined Diagnosis Line: Abnormal ECG Diagnosis Line: No previous ECGs available Diagnosis Line: Confirmed by ZINA SMITH MD ([id number]) on Diagnosis Line: 12/14/2016 7:31:58 AM INTERPRETING MD: LUIS HYATT
--- NOTE | ~2016-12-13 | ST ---
Unit #: [id number] #: [id number] Patient: JORDI LÓPEZ [id number] [facility]. [address] [address] [id number] I MR#: [id number] NAME: JORDI LÓPEZ. : 1945 SEX: F STUDY DATE/TIME: 12/14/2016 UNIT: C5B ROOM: 558 STUDY DESCRIPTION: Attending Physician: Froylan Mak M.D. Primary Care Physician: No Primary Care Physician CARDIOLOGY REPORT REASON FOR EXAM Chest pain. FINDINGS Baseline EKG shows sinus bradycardia, rate of 56 beats per minute, with a first degree AV block. PROCEDURE Next, 0.4 mg of Lexiscan was injected per protocol followed by Cardiolite. During the test, the patient did complain of shortness of breath and headache as well as some stomach cramping and nausea. She was noted to have an elevated blood pressure during the test as high as 203/90. This returned to 181/73 after 10 mg IV hydralazine was given. There were no ST-T wave changes suggestive of ischemia. There was no ectopy. The test was stopped secondary to protocol completion. IMPRESSION 1. Negative EKG portion of Lexiscan Cardiolite. 2. No ST-T wave changes suggestive of ischemia. 3. Positive shortness of breath, brief intermittent wheezing which resolved spontaneously. 4. The patient did have elevated blood pressure prior to the testing as well as during which remained elevated as high as 203/90. The patient was given 10 mg of IV hydralazine with blood pressure decreased down to 181/73. 5. All her symptoms resolved in the recovery period. 6. There were no arrhythmias noted. 7. Please correlate with nuclear imaging. Dictated by... Ivon Grant A.P.R.N. for Jesse Guadalupe/julieth TD: 12/14/2016 12:54 JOB #: [id number] Unit #: [id number] #: [id number] Patient: JORDI LÓPEZ CARDIOLOGY REPORT Page 1 of 1 X Ivon Grant APRN CARDIOLOGY REPORT
--- NOTE | ~2016-12-13 | HP ---
Unit #: [id number] #: [id number] Patient: JORDI LÓPEZ [id number] [facility]. [address] [address] [id number] I MR#: [id number] NAME: JORDI LÓPEZ. ROOM: 558 Age: 71 Sex: F Admission Date: 12/13/2016 : 1945 Attending Physician: Froylan Mak M.D. Primary Care Physician: No Primary Care Physician HISTORY AND PHYSICAL HISTORY OF PRESENT ILLNESS This is a pleasant, 71-year-old, obese female with a past medical history of multiple strokes, on chronic anticoagulation with Coumadin, history of PFO per LUIS in 2009, hypertension, hyperlipidemia, diabetes mellitus, obstructive sleep apnea, peripheral arterial disease and PAF. The patient was just recently in the hospital from November 09 to November 17 with compression fracture, status post kyphoplasty on November 14, 2016 as well as a UTI and acute kidney injury. She was discharged to [facility] for rehab. She tells me she was sitting at [facility] watching television when she developed periodic episodes of chest pain. The first episode started about 7:00 p.m. She describes them as sharp but is not sure how long they lasted. She states that it scared her and therefore she called EMS. The patient also reports she had some radiation of the pain into her left arm and below her left breast. She states she finally got some relief after three sublingual nitroglycerin tablets. Initial EKG shows sinus rhythm with first degree AV block. Cannot rule out septal infarct, rate of 62 beats per minute, QTc interval is 458 msec. Point of care troponin was 0.05. Repeat troponin was noted to be less than 0.03. At present she is resting in bed. She denies any current complaints of chest pain. PAST MEDICAL HISTORY 1. Multiple CVAs, on chronic anticoagulation with Coumadin. 2. LUIS on June 16, 2009 revealed EF of 60% to 65%, mild LVH, atrial septal aneurysmal PFO was preset. No intraatrial shunting. Mild MR. No pericardial effusion. No clot or thrombus. No vegetation. Aorta not well visualized. 3. Hypertension. 4. Hyperlipidemia. 5. Diabetes mellitus type 2. 6. Obstructive sleep apnea, on CPAP. 7. GERD. 8. Peripheral arterial disease with a history of right carotid endarterectomy 2009. 9. Anemia. 10. Migraine headaches. 11. Depression. 12. Reformed tobacco abuse. 13. Paroxysmal atrial fibrillation. Unit #: [id number] #: [id number] Patient: JORDI LÓPEZ PAST SURGICAL HISTORY 1. Right carotid endarterectomy. 2. Cholecystectomy. 3. Appendectomy. 4. Right ankle surgery. 5. Hysterectomy. 6. Colonoscopy. HOME MEDICATIONS 1. Ambien 10 mg p.o. q.h.s. 2. Amiodarone 200 mg p.o. daily. 3. Aspirin 81 mg p.o. daily. 4. Baclofen 10 mg p.o. t.i.d. 5. Coumadin 3 mg p.o. daily. 6. Glucotrol XL 2.5 mg p.o. b.i.d. 7. Iron 325 mg p.o. daily. 8. Lasix 40 mg p.o. daily. 9. Metoprolol tartrate 25 mg p.o. b.i.d. 10. Nexium daily. 11. [place] 7.5/325 one tab p.o. q.6 h. p.r.n. 12. Norvasc 5 mg p.o. daily. 13. NovoLog FlexPen. 14. Zestril 10 mg p.o. daily. 15. Zofran ODT 4 mg p.o. q.6 h. p.r.n. ALLERGIES No known drug allergies. FAMILY HISTORY Family history is positive for father with heart problems; however, the patient is unsure what exactly they were. REVIEW OF SYSTEMS Positive for low back pain, fatigue, chest pain, decreased mobility; otherwise negative. PHYSICAL EXAMINATION VITAL SIGNS: Temperature 97.8, respiratory rate 20, pulse is 70, blood pressure 123/29 to 167/44. GENERAL: This is a pleasant, obese, 71-year-old female in no acute distress. HEENT: Head is atraumatic and normocephalic. Pupils are equal and round. NECK: Trachea is midline. Old scarring on neck is noted from previous surgery. Carotid upstrokes are normal. No thyromegaly or lymphadenopathy. HEART: S1, S2, regular rate and rhythm. No murmur, gallop or rub. LUNGS: Clear to auscultation, diminished in the bases. ABDOMEN: Obese, pannus, soft, nontender and nondistended. Bowel sounds are present. EXTREMITIES: Pulses are palpable. Trace generalized edema. No cyanosis or clubbing is noted. DIAGNOSTIC STUDIES LABORATORY: Point of care troponin was negative. Repeat troponin was less than 0.03. Glucose 185, BUN 25, creatinine 0.7, sodium 138, potassium 4.8, chloride 105, CO2 26, albumin is 3.4, PT is 27.4, INR is 2.5, hemoglobin 11.1, hematocrit 34.4, WBC is 6.7, platelet count 149. Urinalysis shows 2+ leukocyte esterase, 2+ protein, 1+ blood, 10 to 25 RBCs, 10 to 25 WBCs, 1+ bacteria. Culture is currently pending. Unit #: [id number] #: [id number] Patient: JORDI LÓPEZ IMAGING: Chest x-ray shows heart and mediastinal contours are normal. Lungs are clear. No pleural effusion. CARDIOVASCULAR: EKG shows sinus rhythm, first degree AV block, minimal voltage criteria for LVH, rate of 62 beats per minute. Cannot rule out septal infarct. No acute ischemic changes noted. No acute abnormality is seen. ASSESSMENT 1. Atypical chest pain, rule out acute coronary syndrome. 2. History of multiple cardiovascular accidents, maintained on chronic anticoagulation with Coumadin. 3. History of pulmonary function test per LUIS in 2009. 4. Hypertension. 5. Hyperlipidemia. 6. Diabetes mellitus type 2. 7. Obstructive sleep apnea. 8. Peripheral arterial disease. 9. History of paroxysmal atrial fibrillation. 10. Two-dimensional echocardiogram performed 08/16/2016 shows a left ventricular ejection fraction of 40% to 50%. 11. Obesity. PLAN Patient has been admitted for complaints of chest pain. Her symptoms are atypical and thus far her cardiac enzymes have been negative. Her EKG shows no acute ischemic change but secondary to her risk factors would recommend proceeding with Lexiscan Cardiolite today a well as checking an echocardiogram. At this time her Coumadin dose will be continued the same as her INR is therapeutic. Further recommendations pending the outcome of her Lexiscan Cardiolite; if it is normal, she may be discharged back to rehab later today. Dictated by Dina ConnerRBandar Argueta M.D. LMW/cf TD: 12/14/2016 18:58 JOB #: [id number] HISTORY AND PHYSICAL Page 1 of 1 X Ivon Grant APRN HISTORY AND PHYSICAL
--- NOTE | ~2016-12-13 | BMI ---
[facility] Nutrition Therapy DATE: 12/14/16 Patient: JORDI LÓPEZ Physician: GUMARO Address: [address] [place] [address] Room/Bed: [address] [place] [address], Zip: [place] [address] Admit Date: 12/13/16 Date of : [birth year] Height: 5 2 Weight: 249 113 HIGH BMI NOTE: DX: 71 y/o female admitted for chest pain ANTHROPOMETRICS: ht: 5'2" wt: 249# (113 kg) BMI 45 DIET: NPO INTERVENTION: 1. NPO RECOMMENDATIONS: 1. Once medically feasible, advance diet to healthy heart in order to promote gradual weight loss towards healthy BMI (19.0-25.0). RD will f/u per protocol. Respectfully, MELANIE GONZALEZ, Editor [employer] Maria Eugenia Lopez, KWAKU, LD Food and Nutritional Services [facility] cc: client file
--- NOTE | ~2016-12-13 | DS ---
Unit #: [id number] #: [id number] Patient: JORDI LÓPEZ [id number] [place] [address] [id number] I MR#: [id number] NAME: JORDI LÓPEZ. ROOM: 55 Age: 71 Sex: F Admission Date: 12/13/2016 : 1945 Discharge Date: 12/15/2016 Attending Physician: Froylan Mak M.D. Primary Care Physician: No Primary Care Physician DISCHARGE SUMMARY DISCHARGE DIAGNOSES 1. Chest pain, ruled out for myocardial infarction. 2. Normal Lexiscan Cardiolite stress test on 12/14/2016, which revealed no ischemia. Ejection fraction 66%. 3. History of multiple CVAs with right hemiparesis. 4. Two-dimensional echocardiogram 08/16/2016 with an ejection fraction of 40%-50%. 5. LUIS 06/16/2009 with ejection fraction of 50%-55% with mild LVH. Atrial septum aneurysmal PFO present. Injection of contrast documented intraatrial shunt. Mild mitral vegetation. No pericardial effusion. No clots or thrombus. No vegetation. 6. Hypertension. 7. Hyperlipidemia. 8. Diabetes mellitus type 2. 9. Obstructive sleep apnea on CPAP. 10. Obesity. 11. Gastroesophageal reflux disease. 12. PAD with a history of right carotid endarterectomy in 2009. 13. Anemia. 14. Migraine headaches. 15. Depression. 16. Paroxysmal atrial fibrillation, now in sinus rhythm. 17. Recent fall with compression fracture, status post kyphoplasty on 11/14/2016. 18. Recent stay at [facility] after kyphoplasty. 19. Reformed tobacco abuse. DISCHARGE MEDICATIONS 1. Ambien 10 mg p.o. at nighttime. 2. Amiodarone 200 mg p.o. daily. 3. Aspirin 81 mg p.o. daily. 4. Baclofen 10 mg p.o. t.i.d. 5. Coumadin 3 mg p.o. daily. 6. Glucotrol XL 2.5 mg p.o. b.i.d. 7. Iron 320 mg p.o. daily. 8. Lasix 40 mg daily. 9. Toprol tartrate 25 mg p.o. b.i.d. 10. Nexium 1 tablet p.o. daily. 11. [place] 7.5/325 mg 1 tablet p.o. q.6 h. p.r.n. 12. Norvasc 5 mg daily. 13. NovoLog flex pen as instructed. 14. Lisinopril 10 mg p.o. daily. 15. Zofran ODT 4 mg p.o. q.6 h. p.r.n. Unit #: [id number] #: [id number] Patient: RENEBETH [facility] This is a 71-year-old white female previously known to our group with a history of multiple strokes, with right-sided hemiparesis. The patient also has a history of PFO which was diagnosed on LUIS in 2009. She has been on chronic anticoagulation with Coumadin. She has hypertension, hyperlipidemia, diabetes, obesity, obstructive sleep apnea and PAD. She has had paroxysmal atrial fibrillation in the past, but is currently in sinus rhythm. She was recently admitted to [facility] 11/09/2016 through 11/17/2016 with a compression fracture at T11 and she underwent a kyphoplasty on 11/14/2016. During that admission she was treated for meningococcal urinary tract infection as well as nonspecific colitis and idiopathic pancreatitis. She had an acute kidney injury which improved. She was discharged to [facility]. She presented back to [facility] on 12/13/2016 with complaints of chest pain. Please see details in history and physical. Cardiac enzymes were obtained and she ruled out for myocardial infarction. EKG was nonacute. She was recommended for Lexiscan Cardiolite stress test. The stress test was completed on 12/14/2016 and images revealed no ischemia. Ejection fraction was normal at 66%. She was going to be discharged on 12/14/2016, but due to no additional rehab days she was not accepted back at [facility]. Her daughter was notified. According to her daughter and the patient, prior to rehab she was staying with her daughter. The daughter has agreed to take her home. Home health has been consulted as well as outpatient physical therapy. The patient is stable for discharge and will be released on 12/15/2016. She was instructed to follow up with her primary care provider as well as cardiology. The patient's INR was therapeutic on Coumadin. Her medications were continued per previous dosing. Upon discharge her INR is 2.5. Urinalysis was obtained on 12/13/2016 and revealed 2+ leukocytes, 1+ blood and 2+ bacteria. Urine culture was obtained and revealed mixed growth. The patient should be considered for a repeat urinalysis as an outpatient. DIAGNOSTIC DATA LABORATORY: White blood cell count 6.7, hemoglobin 11.1, hematocrit 34.4, platelets 149, sodium 138, potassium 4.8, chloride 105, CO2 26, BUN 25, creatinine 0.7, glucose 185, AST 22, ALT 22, alkaline phosphatase 129, troponin 0.03 and 0.03. INR 2.5. Urinalysis with 2+ leukocytes, 2+ protein, 1+ blood and 2+ bacteria. Urine culture with mixed growth. Recommend recollect as an outpatient. IMAGING: Chest x-ray on 12/13/2016 revealed no acute findings. CARDIOVASCULAR: Electrocardiogram revealed sinus rhythm/ bradycardia with a ventricular rate of 59 beats per minute. First degree AV block. PAC. No acute ST or T wave changes. PHYSICAL EXAMINATION VITALS: Temperature 98.1, pulse 79, blood pressure 126/44. GENERAL: This is a 71-year-old white female in no acute distress. SKIN: Warm and dry. NECK: Supple. No jugular venous distension. No hepatojugular reflux. Normal carotid upstrokes. No carotid bruits auscultated. HEART: S1 and S2. Regular rate and rhythm. No murmurs, rubs or gallops. LUNGS: Bilateral breath sounds have good entry throughout all lung chino. Respirations even and unlabored. No rales, rhonchi or wheezes. ABDOMEN: Obese, soft, nontender and nondistended. Positive bowel sounds auscultated times four quadrants. No ascites noted. EXTREMITIES: Lower extremities have no pretibial edema. DP and PT pulses Unit #: [id number] #: [id number] Patient: JORDI LÓPEZ 2+. Capillary refill less than 3 seconds. DISCHARGE INSTRUCTIONS 1. The patient will be discharged home with her daughter. 2. Home health and outpatient physical therapy. 3. Follow up with primary care provider in one to two weeks. 4. Follow up with [facility] in six to eight weeks. Office to call with appointment. 5. Consider repeat urinalysis due to remote urinary tract infection and antibiotics. 1. Dictated by... Sofia Rajput APRN for Julián Anderson M.D. TR/gz TD: 12/19/2016 08:24 JOB #: [id number] DISCHARGE SUMMARY Page 1 of 1 X X DISCHARGE SUMMARY
--- NOTE | ~2016-12-13 | TH ---
Unit #: [id number] #: [id number] Patient: JORDI LÓPEZ [id number] [address] [address] [id number] I MR#: [id number] NAME: JORDI LÓPEZ. : 1945 SEX: F STUDY DATE/TIME: 12/14/2016 UNIT: [id number] ROOM: 558 STUDY DESCRIPTION: Cardiolite imaging. Attending Physician: Froylan Mak M.D. Primary Care Physician: No Primary Care Physician CARDIOLOGY REPORT EXAM Cardiolite imaging. INDICATION FOR STUDY Chest pain, dyspnea, inability to exercise. SUMMARY The patient was given Lexiscan intravenously while at rest. Full ECG results are reported separately. The patient was given 10 mg of hydralazine before the procedure due to resting blood pressure 202/81. Briefly, the ECG showed no changes. Technetium 99m Cardiolite 11.55 and 34.1 mCi was injected at rest and stress respectively. Appropriate views were obtained. FINDINGS The study is adequate. There is no significant patient motion noted during acquisition of rest or stress images. There is no significant lung uptake, left ventricular or right ventricular enlargement. There is breast attenuation artifact present. Summed stress scores is 1. Gated perfusion and wall motion analysis demonstrates normal wall motion throughout the myocardium with end-diastolic volume 93 ml, ejection fraction 66%. Perfusion images demonstrate diaphragmatic artifact with apical thinning and otherwise normal perfusion. IMPRESSION Myocardial perfusion study shows no ischemia or infarction. Normal wall motion with excellent ejection fraction. Dictated by... Jesse Painter/catalino TD: 12/15/2016 10:07 JOB #: [id number] Unit #: [id number] #: [id number] Patient: JORDI LÓPEZ CARDIOLOGY REPORT Page 1 of 1 X Elvin Michel MD CARDIOLOGY REPORT
--- NOTE | ~2016-12-13 | CR72 ---
[facility] A Service of [facility] RADIOLOGY TEXT RESULTS PATIENT: JORDI LÓPEZ LOCATION: [place] [address] : [birth year] UNIT #: [id number] AGE: [address]: CAMILLE VENEGAS SEX: F ORDER DR: [id number] [facility] [address] [facility]. [place], [place] [address] [id number] MR#: [id number] Acc #: [id number] NAME: JORDI LÓPEZ. : 1945 SEX: F STUDY DATE/TIME: 12/13/2016 20:58 UNIT: [facility] ROOM: STUDY DESCRIPTION: CR Chest Single View Portable Attending Physician: Mason Ren M.D. Ordering Physician: [facility] MEDICAL IMAGING REPORT This report is preliminary unless electronic signature is present EXAM Single view chest INDICATIONS Chest pain and weakness. TECHNIQUE Single portable AP view of the chest compared to 08/17/2016. FINDINGS Heart and mediastinal contours are normal. The lungs are clear. No pleural effusion. IMPRESSION No interval change. Dictated by... Juan Crain M.D. THIS IS AN ELECTRONICALLY VERIFIED REPORT Juan Crain M.D. at 12/14/2016 3:12 PM CHIDI/brigid TD: 12/13/2016 22:28 JOB #: [id number] MEDICAL IMAGING REPORT Page 1 of 1 COPY
[2016-12-13 21:23] LABS: BASOPHIL% 0.7 % (0-2.5); EOSINOPHIL# 0.1 X10e3 (0-0.7); HEMATOCRIT 34.4 % (35.0-45.0); HEMOGLOBIN 11.1 gm/dL (12.0-16.0); LYMPHOCYTE# 1.8 X10e3 (1.0-3.5); LYMPHOCYTE% 26.8 % (17.0-45.0); MEAN CELL VOLUME 88.4 FL (83-96); MEAN CORPUSCULAR HEMOGLOBIN 28.5 PG (28-34); MEAN CORPUSCULAR HGB CONC 32.2 g/dL (30-36); MEAN PLATELET VOLUME 10.7 FL (6.5-11.5); MONOCYTE# 0.7 X10e3 (0-1.0); NEUTROPHIL% 59.5 % (40-75); PLATELET COUNT 149 X10e3 (140-420); RED BLOOD COUNT 3.89 X10e (3.90-5.30); WHITE BLOOD COUNT 6.7 X10e3 (4.0-10.5)
[2016-12-13 21:24] LABS: POC - TROPONIN <0.05 ng/mL (<=0.05)
[2016-12-13 21:27] LABS: DIFF IND NO
[2016-12-13 21:38] LABS: ALBUMIN SERUM 3.4 g/dL (3.5-5.0); BILIRUBIN, DIRECT 0.1 mg/dL (0.0-0.2); BILIRUBIN,INDIRECT 0.5 mg/dL (0.0-0.9); BILIRUBIN,TOTAL 0.6 mg/dL (0.2-2.0); BUN/CREATININE RATIO 35.71; CALCIUM SERUM 9.1 mg/dL (8.4-10.2); CREATININE SERUM 0.7 mg/dL (0.6-1.4); GLOM FILT RATE Estimated 88.4 mL/min (>60); POTASSIUM 4.8 mmol/L (3.5-5.1); PROTEIN TOTAL SERUM 6.7 g/dL (6.0-8.3)
[2016-12-13 22:15] LABS: INR 2.5
[2016-12-13 22:17] LABS: URINE SOURCE CLEAN CATCH
[2016-12-13 22:20] LABS: URINE APPEARANCE CLOUDY; URINE BILIRUBIN NEG (NEG); URINE BLOOD 1+ (NEG); URINE COLOR YELLOW; URINE GLUCOSE NEG (NEG); URINE KETONE NEG (NEG); URINE LEUKOCYTE ESTERASE 2+ (NEG); URINE NITRATE NEG (NEG); URINE PROTEIN 2+ (NEG); URINE SPECIFIC GRAVITY 1.018 (1.003-1.035); URINE UROBILINOGEN 0.2 MG/DL (NEG)
[2016-12-13 22:20] LABS: PROTHROMBIN TIME (PATIENT) 27.4 SECONDS (10.0-11.7)
[2016-12-13 22:23] LABS: CULTURE INDICATED? YES; URINE BACTERIA AUWI 2+ (NEGATIVE); URINE SQUAMOUS EPITHELIAL CELL MOD /[HPF]
[2016-12-13 23:59] LABS: POC - CKMB 1.4 ng/mL (0.0-7.9); POC - TROPONIN <0.05 ng/mL (<=0.05)
[2016-12-14 06:09] LABS: CK TOTAL 27 IU/L (26-140)
[2016-12-14 14:34] LABS: CK TOTAL 33 IU/L (26-140)
== END 2016-12-15 19:30 | disposition home or self-care (01) ==
LOC: CED 20:37 → CEDOF 22:55 → CED 23:04 → CEDOF 23:04 → C5B 23:04 → CEDOF 12-14 00:18 → C5B 12-15 19:30
PROVIDERS: Emergency Medicine; Internal Medicine Clinical Cardiac Electrophysiology
DX: R07.89 Other chest pain (principal); I34.0 Nonrheumatic mitral (valve) insufficiency; I10 Essential (primary) hypertension; E11.9 Type 2 diabetes mellitus without complications; Z79.4 Long term (current) use of insulin; E78.5 Hyperlipidemia, unspecified; G47.33 Obstructive sleep apnea (adult) (pediatric); I69.351 Hemiplegia and hemiparesis following cerebral infarction affecting right dominant side; I73.9 Peripheral vascular disease, unspecified; Z79.01 Long term (current) use of anticoagulants; E66.9 Obesity, unspecified; K21.9 Gastro-esophageal reflux disease without esophagitis; D64.9 Anemia, unspecified; I48.0 Paroxysmal atrial fibrillation; F32.9 Major depressive disorder, single episode, unspecified; G43.909 Migraine, unspecified, not intractable, without status migrainosus; Z99.81 Dependence on supplemental oxygen; Z79.899 Other long term (current) drug therapy; Z79.82 Long term (current) use of aspirin; Z87.891 Personal history of nicotine dependence
CPT/HCPCS: 36415; 71010; 78452; 80048; 80076; 81003; 82550; 82553; 82947; 84484; 85025; 85610; 85730; 87086; 93005; 93017; 97163; 99285; A9500; G0378; G8978-GP; G8979-GP; G8980-GP; J0360; J2785